=== PATIENT | female | born 1950 | race Caucasian/White ===

== ENCOUNTER 2024-03-07 09:56 | Outpatient (AMB) | payer MEDICARE, SELFPAY ==
--- NOTE | 2024-03-07 10:02 | A.OFFPC_ITS ---
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 // Est Care Intake Note: Establish care Is last menstrual period known: No Post menopausal: Yes Patient : No Allergies lisinopril Allergy (Intermediate, Verified 03/07/24 10:04) Facial Swelling Medication List - Last Reconciled 03/07/24 by Rustam Moore MD cholecalciferol (vitamin D3) 25 mcg PO DAILY epinephrine 0.3 mg (0.3 mL) IM Q10M PRN 30 days fluorouracil 5% 1 appl topical BID hydrochlorothiazide 25 mg PO DAILY levothyroxine 75 mcg PO DAILY loratadine (Claritin) 10 mg PO DAILY metoprolol succinate ER 50 mg PO DAILY pravastatin 40 mg PO DAILY Tobacco use date assessed: 03/07/24 Fall risk assessment: No Falls in past year Last assessed Fall Risk: 03/07/24 Dental Screening Dental Screen Date: 03/07/24 Did you have a dental visit in the last 12 months?: Yes Did you have a dental problem in the last 6 months where you did not have access to dental care?: No Was dental information given to patient?: Patient has dentist 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 ?? Prior PCP:? Vonda Valadez from [facility] Last office visit/CPE:? August 2023, CPE 1 yr ago Acute issue(s):? Broken Teeth. Oral surgeon Dr De Leon in [place]. Basal Cell Skin CA - Dr Meraz, Dermatology BP 130/80 Last Colonoscopy last year and f/u 2029. ?? PMHx:? HTN, HLD, Hypothyroid, Allergy, Low Vit D, Basal Cell CA, Recurrent Back strain SurgHx:?L knee/patella. FHx:?Brother: Heart disease. Mother: Colon CA. Father: DM. Daughter: DM SocHx:?Quit cigs 1979, EtOH: Beer & Wine 1-2 glasses. MJ edibles for sleep. No other drugs PFSH Medical History (Updated 03/07/24 @ 10:52 by Rustam Moore MD) Skin cancer Hypothyroid High blood pressure High cholesterol Surgical History (Updated 03/07/24 @ 10:10 by Lelo Thompson CMA) H/O knee surgery Family History (Updated 03/07/24 @ 10:11 by Lelo Thompson CMA) Father Diabetes Mother Colon cancer Social History (Updated 03/07/24 @ 10:11 by Lelo Thompson CMA) Housing: Condominium Patient Tobacco Use Status: Never used Tobacco e-Cigarette/Vaping Use: Never Used Second Hand Smoke Exposure: No Use of substances other than those prescribed or required for medical reasons: No Patient : No service: No Current occupational status: retired Current occupational exposures/hazards: No Cognitive needs: No Hearing needs: No Vision needs: Yes Questionnaire PHQ-9 Over the last 2 weeks, how often have you been bothered by any of the following problems? 1. Little interest or pleasure in doing things: not at all 2. Feeling down, depressed, or hopeless: not at all 3. Trouble falling or staying asleep, or sleeping too much: not at all 4. Feeling tired or having little energy: not at all 5. Poor appetite or overeating: not at all 6. Feeling bad about yourself - or that you are a failure or have let yourself or your family down: not at all 7. Trouble concentrating on things, such as reading the newspaper or watching television: not at all 8. Moving or speaking so slowly that other people could have noticed. Or the opposite - being so fidgety or restless that you have been moving around a lot more than usual: not at all 9. Thoughts that you would be better off or of hurting yourself in some way: not at all Total score: 0 Depression Screening Interpretation: Negative Depression Screening Done: Yes 73397 - PHQ-9 Billing: Yes Source: Developed by Drs. Gael Jay, Tonya Maciel, Hakeem Santillan and colleagues, with an educational zachariah from [employer]. Thrive Questionnaire Date Thrive assessed: 03/07/24 I am a: Patient What is your living situation today?: I have a steady place to live Within the past 12 months, did the food you bought not last and you didn't have the money to get more?: Never true Within the past 12 months, did you worry whether your food would run out before you got money to buy more?: Never true Do you have trouble paying for medicines?: No Do you have trouble getting transportation to medical appointments?: No Do you have trouble paying your heating and electricity bill?: No Do you have trouble taking care of your child, family member or friend?: No Do you have trouble with day-to-day activities such as bathing, preparing meals, shopping, managing finances, etc.?: No Are you currently unemployed and looking for a job?: No Are you interested in more education?: No Please select the resources that you would like help with: None Currently or been in a relationship where the following occur: No concerns reported THRIVE Score: 0 AUDIT C Alcohol Use Questionnaire (AUDIT-C) 1. How often do you have a drink containing alcohol?: 4 or more times a week 2. How many drinks containing alcohol do you have on a typical day when you are drinking?: 1 or 2 3. How often do you have six or more drinks on one occasion?: Never Total Score: 4 KP-7 AMB Questionnaire KP-7 Date KP - 7 assessed: 03/07/24 Feeling nervous, anxious, or on edge: 0 = Not at all Not being able to stop or control worryin = Not at all Worrying too much about different things: 0 = Not at all Trouble relaxin = Not at all Being so restless that it is hard to sit still: 0 = Not at all Becoming easily annoyed or irritable: 0 = Not at all Feeling afraid as if something awful might happen: 0 = Not at all Total KP-7 score (0-4 normal; 5-9 mild; 10-14 moderate; 15-21 severe): 0 Source: Developed by Drs. Gael Jay, Tonya Maciel, Hakeem Santillan and colleagues, with an educational zachariah from [employer]. Review of Systems Const Denies chills, Denies fatigue, Denies fever(s), Denies headache(s) and Denies weakness ENT Denies dizziness and Denies headache(s) Card Denies chest pain, Denies lightheadedness, Denies dyspnea and Denies other (Palpitations) Resp Denies cough, Denies dyspnea, Denies wheezing and Denies other ( shortness of breath) Musc Denies numbness and Denies tingling Neuro Denies dizziness, Denies headache(s), Denies numbness, Denies tingling, Denies paresthesias and Denies weakness Psych Denies anxiety and Denies depression Endo Denies fatigue Aller/Immun Denies wheezing Physical exam (Primary Care) Vital Signs: Last Vital Signs Temp 98.3 F 03/07/24 10:14 Pulse 66 03/07/24 10:14 Resp 16 03/07/24 10:14 BP 130/78 03/07/24 10:14 Pulse Ox 96 03/07/24 10:14 Oxygen Delivery Method Room Air 03/07/24 10:14 BMI result Body Mass Index 25.9 Tobacco/Smoking Status: Tobacco use Status Tobacco use date assessed 03/07/24 03/07/24 10:06 Patient Tobacco Use Status Never used Tobacco 03/07/24 10:11 e-Cigarette/Vaping Use Never Used 03/07/24 10:11 PHQ-9: PHQ-9 Score PHQ-9: Total score 0 03/07/24 10:20 Depression Screening Interpretation: Negative Thrive Assessment: Date of Thrive Assessment Date Thrive assessed 03/07/24 03/07/24 10:19 Currently or been in a relationship where the following occur: No concerns reported Const General: no acute distress and well developed Nutritional Appearance: well nourished Orientation/consciousness: patient oriented x3 [facility] Head: Yes normocephalic and Yes atraumatic Eyes General: appearance normal, both eyes and all related structures Pupils: Equal, round and reactive pupils present EOM: EOMs intact bilaterally Resp Effort & Inspection: normal respiratory effort Auscultation: clear to auscultation bilaterally Cardio Rate: regular rate Rhythm: regular rhythm Heart sounds: S1 normal heart sound present, S2 normal heart sound present, no gallops, no murmurs and no rubs Neuro General: patient oriented x3 and gait normal Cranial nerves: Yes Equal, round and reactive pupils present Psych Affect: normal affect Coding Level of Care Code New Pt Level 3 (30716) Diagnoses Back pain M54.9 High blood pressure I10 Hypothyroid E03.9 High cholesterol E78.00 Low vitamin D level R79.89 Basal cell carcinoma C44.91 History of colon polyps Z86.0100 Family history of colon cancer Z80.0 Laboratory exam ordered as part of routine general medical examination Z00.00 Additional Codes PHQ-9 - 05689 - PHQ-9 Billing: Yes ([id number]) Assessment & Plan Assessment & Plan (1) Back pain: Code(s): M54.9 - Dorsalgia, unspecified Category: Medical Plan: Patient?gets?recurrent?back?pain?though?currently?this?is?stable She?will?let?me?know?if?this?flares?up?and?we?discussed?using?physical?therapy?f or?this (2) High blood pressure: Code(s): I10 - Essential (primary) hypertension Category: Medical Plan: Blood?pressure?is?controlled.??Goal?is?less?than?140/90 Continue?current?medication?regimen (3) Hypothyroid: Code(s): E03.9 - Hypothyroidism, unspecified Category: Medical Plan: Taking?levothyroxine?75?mcg?daily. Check?labs (4) High cholesterol: Code(s): E78.00 - Pure hypercholesterolemia, unspecified Category: Medical Plan: Patient?is?on?pravastatin Check?labs (5) Low vitamin D level: Code(s): R79.89 - Other specified abnormal findings of blood chemistry Category: Medical Plan: Patient?is?on?vitamin-D?supplementation Check?vitamin-D?level (6) Basal cell carcinoma: Code(s): C44.91 - Basal cell carcinoma of skin, unspecified Category: Medical Plan: Followed?by??Mariya,?Dermatology?in?no?[place]?for?basal?cell?carcinoma.??She? is?taking?fluorouracil. 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 (8) Family history of colon cancer: Code(s): Z80.0 - Family history of malignant neoplasm of digestive organs Category: Medical Plan: As?above (9) Laboratory exam ordered as part of routine general medical examination: Code(s): Z00.00 - Encounter for general adult medical examination without abnormal findings Category: Medical Plan: Check?labs Orders: Orders Complete Blood Count Auto Diff Today Z00.00 - Encounter for general adult medical examination without abnormal findings Comprehensive [place]. Panel Fast Today Z00.00 - Encounter for general adult medical examination without abnormal findings Microalbumin, Random (w Creat) Today I10 - Essential (primary) hypertension Free T4 (Free Thyroxine) Today E03.9 - Hypothyroidism, unspecified Vitamin D 25-OH Total Today E55.9 - Vitamin D deficiency, unspecified Lipid Panel Today Z00.00 - Encounter for general adult medical examination without abnormal findings UA and rflx microscopic Today Z00.00 - Encounter for general adult medical examination without abnormal findings Thyroid Stimulating Hormone Today E03.9 - Hypothyroidism, unspecified Triiodothyronine T3 Total Today E03.9 - Hypothyroidism, unspecified Medications: New epinephrine for 2 doses 0.3 mg (0.3 mL) IM Q10M 30 days PRN 2 ea 3RF anaphylaxis
[2024-03-07 10:14] VITALS: BP 130/78; PULSE 66; RESP 16; TEMP 36.8; O2SAT 96; BMI 25.9
== END 2024-03-07 10:50 | disposition home or self-care (01) ==
PROVIDERS: Visit Provider Family Medicine
DX: M54.9 Dorsalgia, unspecified (principal); I10 Essential (primary) hypertension; E03.9 Hypothyroidism, unspecified; E78.00 Pure hypercholesterolemia, unspecified; R79.89 Other specified abnormal findings of blood chemistry; C44.91 Basal cell carcinoma of skin, unspecified; Z86.0100 Personal history of colon polyps, unspecified; Z80.0 Family history of malignant neoplasm of digestive organs; Z00.00 Encounter for general adult medical examination without abnormal findings

== ENCOUNTER → 2024-03-07 09:56 | Outpatient (BNVA) | payer MEDICARE, SELFPAY | PROVIDERS: Visit Provider Family Medicine | DX: Z00.00 Encounter for general adult medical examination without abnormal findings (principal); I10 Essential (primary) hypertension; M54.9 Dorsalgia, unspecified; E03.9 Hypothyroidism, unspecified; E78.00 Pure hypercholesterolemia, unspecified; R79.89 Other specified abnormal findings of blood chemistry; C44.91 Basal cell carcinoma of skin, unspecified; Z80.0 Family history of malignant neoplasm of digestive organs; Z86.0100 Personal history of colon polyps, unspecified | CPT/HCPCS: 96127; 99202 ==

== ENCOUNTER 2024-03-15 08:51 | Outpatient (REF) | payer MEDICARE, SELFPAY ==
[2024-03-15 11:20] LABS: MANUAL DIFF FLAG NO
[2024-03-15 11:29] LABS: Basophils Absolute Auto 0.1 X10*3/uL (0.0-0.2); Basophils Percent Auto 1.2 % (0-2); Eosinophils Absolute Auto 0.4 X10*3/uL (0.0-0.4); Eosinophils Percent Auto 6.4 % (0-4); Hematocrit 38.6 % (37.0-47.0); Hemoglobin 13.3 g/dl (12.0-16.0); Imm Gran Abs Auto 0.03 X10*3/uL (0.00-0.03); Imm Gran Pct Auto 0.5 % (0.0-0.4); Lymphocytes Absolute Auto 1.6 X10*3/uL (1.2-4.9); Lymphocytes Percent Auto 24.8 % (20-40); Mean Corpuscular HGB Conc 34.5 g/dl (31.0-35.0); Mean Corpuscular Hemoglobin 31.7 pg (27.0-33.0); Mean Corpuscular Volume 91.9 fL (80.0-98.0); Mean Platelet Volume 11.1 fL (9.4-12.3); Monocytes Absolute Auto 0.5 X10*3/uL (0.1-1.2); Monocytes Percent Auto 7.6 % (2-11); Neutrophils Absolute Auto 3.8 x10*3/uL (2.0-8.3); Neutrophils Percent Auto 59.5 % (45-73); Platelet Count 183 X10*3/uL (160-400); Red Cell Distribution Width 12.1 % (11.0-16.0); White Blood Count 6.4 X10*3/uL (4.8-10.8)
[2024-03-15 11:41] LABS: Appearance Urine Clear; Color Urine Yellow; Glucose Urine UA Negative (Negative); Leukocyte Esterase Urine Trace (Negative); Nitrite Urine Negative (Negative); PH 8.5 (5.0-9.0); Specific Gravity - Urine 1.015 (1.005-1.025); UMIC TRIGGER UA YES; Urine Blood Negative (Negative); Urine Ketones Negative (Negative); Urine Protein Negative (Neg-Trace)
[2024-03-15 11:52] LABS: Alanine Aminotransferase 22 U/L (0-31); Albumin Level 3.9 g/dL (3.5-5.0); Alkaline Phosphatase 62 U/L (39-117); Anion Gap 9 (12-20); Aspartate Amino Transferase 27 U/L (5-31); Bilirubin Total 0.8 mg/dL (0.0-1.0); Blood Urea Nitrogen 14 mg/dL (9-16); Calcium 8.8 mg/dL (8.4-10.2); Carbon Dioxide 29 mmol/L (22-29); Chloride 105 mmol/L (96-108); Cholesterol 208 mg/dL (<200); Estimated Glomerular Filt Rate > 60; Glucose Fasting 111 mg/dL (60-99); HDL Cholesterol 83 mg/dL (>40); LDL Cholesterol Calculated 104 mg/dL (<100); Potassium 3.1 mmol/L (3.3-5.1); Sodium 140 mmol/L (135-145); Total Protein 6.7 g/dL (6.5-8.0); Triglycerides 109 mg/dL (<150)
[2024-03-15 11:53] LABS: Bacteria Urine None Seen (None Seen); Hyaline Casts Urine 0-2 /LPF (0-2); Other Crystals Urine Present; RBC Urine 0-2 /HPF (0-2); Squamous Epithelial Cell Urine 0-2 /HPF (0-2); WBC Urine 0-5 /HPF (0-5)
[2024-03-15 12:01] LABS: Creatinine Urine 80.62 mg/dL; Microalbum/Creatinine Ratio Ur 8.6 ug/mg cr (<30)
[2024-03-15 12:10] LABS: Free T4 (Free Thyroxine) 1.18 ng/dL (0.71-1.85); Thyroid Stimulating Hormone 2.58 uIU/mL (0.32-4.0); Vitamin D 25-OH Total 68.8 ng/mL (>30)
[2024-03-16 10:18] LABS: Triiodothyronine T3 Total 98 ng/dL (76-181)
== END 2024-03-15 08:52 | disposition home or self-care (01) ==
LOC: HO.WFDLDS 08:51
PROVIDERS: Visit Provider Family Medicine
DX: Z00.00 Encounter for general adult medical examination without abnormal findings (principal); E03.9 Hypothyroidism, unspecified; E55.9 Vitamin D deficiency, unspecified; I10 Essential (primary) hypertension
CPT/HCPCS: 36415; 80053; 80061; 81001; 82043; 82306; 82570; 84439; 84443; 84480; 85025

== ENCOUNTER 2025-01-31 08:51 | Outpatient (AMB) | payer MEDICARE, SELFPAY ==
--- NOTE | 2025-01-31 09:02 | MHC.PC.OV ---
Vital Signs 01/31/25 09:17 Height 5 ft 3 in Weight 181 lb 4 oz BMI 32.1 BP 128/82 Blood Pressure Location Lt brachial Position Sitting Respiration 16 Pulse 94 Pulse Source Pulse Oximeter Temp 97.6 F Temp Source Temporal Artery Scan Pulse Oximetry (%) 99 Oxygen Delivery Method Room Air Intake Visit Reasons: Annual PE - see comments Intake Note: Jose Miguel presents in the office today for her annual physical. 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 Post menopausal: Yes Patient : No Allergies lisinopril Allergy (Intermediate, Verified 01/31/25 09:15) Facial Swelling Medication List - Last Reconciled 01/31/25 by Rustam Moore MD cholecalciferol (vitamin D3) 25 mcg PO DAILY epinephrine 0.3 mg (0.3 mL) IM Q10M PRN 30 days fluorouracil 5% 1 appl topical BID hydrochlorothiazide 25 mg PO DAILY 90 days levothyroxine 75 mcg PO DAILY 90 days loratadine (Claritin) 10 mg PO DAILY metoprolol succinate ER 50 mg PO DAILY 90 days pravastatin 40 mg PO DAILY 90 days Tobacco use date assessed: 01/31/25 Fall risk assessment: No Falls in past year Last assessed Fall Risk: 01/31/25 Dental Screening Dental Screen Date: 01/31/25 Did you have a dental visit in the last 12 months?: Yes Did you have a dental problem in the last 6 months where you did not have access to dental care?: No Was dental information given to patient?: Patient has dentist HPI Annual PE - see comments HPI Details 74 y/o female presents for a CPE with f/u labs and health maint. Labs drawn 03/15/24. Reviewed labs with pt. Fasting glucose 111. Triglycerides 109. TC 208. LDL 104. HDL 83. Vitamin D 68/8 ng/mL. TSH 2.58. Free T4 1.18. Total T3 98. She is on levothyroxine 75 mcg daily. HPI Comments History of Present Illness Details Documentation assistance for Rustam Moore MD, was provided by Tristan Patel,? Engineering And Scientific Programmer on 01/31/2025 at 9:40 AM EST. Lomas, Dr. Moore, have read, observed, and verified documentation. ? [facility] Medical History (Updated 01/31/25 @ 09:56 by Tristan Patel) Skin cancer Hypothyroid High blood pressure High cholesterol Surgical History (Updated 03/07/24 @ 10:10 by INESSA Martines) H/O knee surgery Family History Father Diabetes Mother Colon cancer Social History (Updated 01/31/25 @ 09:17 by Brenna Wilkinson CMA) [facility] Alcohol intake: current Patient Tobacco Use Status: Never used Tobacco e-Cigarette/Vaping Use: Never Used Second Hand Smoke Exposure: No service: No Current occupational status: retired Current occupational exposures/hazards: No Cognitive needs: No Hearing needs: No Vision needs: Yes Questionnaire PHQ-9 Over the last 2 weeks, how often have you been bothered by any of the following problems? 1. Little interest or pleasure in doing things: not at all 2. Feeling down, depressed, or hopeless: not at all 3. Trouble falling or staying asleep, or sleeping too much: not at all 4. Feeling tired or having little energy: not at all 5. Poor appetite or overeating: not at all 6. Feeling bad about yourself - or that you are a failure or have let yourself or your family down: not at all 7. Trouble concentrating on things, such as reading the newspaper or watching television: not at all 8. Moving or speaking so slowly that other people could have noticed. Or the opposite - being so fidgety or restless that you have been moving around a lot more than usual: not at all 9. Thoughts that you would be better off or of hurting yourself in some way: not at all Total score: 0 Depression Screening Interpretation: Negative Depression Screening Done: Yes 76255 - PHQ-9 Billing: Yes Source: Developed by Drs. Gael Jay, Tonya Maciel, Hakeem Santillan and colleagues, with an educational zachariah from [employer]. Thrive Questionnaire Date Thrive assessed: 01/31/25 I am a: Patient What is your living situation today?: I have a steady place to live Within the past 12 months, did the food you bought not last and you didn't have the money to get more?: Never true Within the past 12 months, did you worry whether your food would run out before you got money to buy more?: Never true Do you have trouble paying for medicines?: No Do you have trouble getting transportation to medical appointments?: No Do you have trouble paying your heating and electricity bill?: No Do you have trouble taking care of your child, family member or friend?: No Do you have trouble with day-to-day activities such as bathing, preparing meals, shopping, managing finances, etc.?: No Are you currently unemployed and looking for a job?: No Are you interested in more education?: No Please select the resources that you would like help with: None Currently or been in a relationship where the following occur: No concerns reported THRIVE Score: 0 AUDIT C Alcohol Use Questionnaire (AUDIT-C) 1. How often do you have a drink containing alcohol?: Monthly or less 2. How many drinks containing alcohol do you have on a typical day when you are drinking?: 1 or 2 Total Score: 1 KP-7 AMB Questionnaire KP-7 Date KP - 7 assessed: 01/31/25 Feeling nervous, anxious, or on edge: 0 = Not at all Not being able to stop or control worryin = Not at all Worrying too much about different things: 0 = Not at all Trouble relaxin = Not at all Being so restless that it is hard to sit still: 0 = Not at all Becoming easily annoyed or irritable: 0 = Not at all Feeling afraid as if something awful might happen: 0 = Not at all Total KP-7 score (0-4 normal; 5-9 mild; 10-14 moderate; 15-21 severe): 0 Source: Developed by Drs. Gael Jay, Tonya Maciel, Hakeem Santillan and colleagues, with an educational zachariah from [employer]. KP-7 Assessment Billing KP-7 Assessment Tool: KP-7 Assessment 98758 Review of Systems Const Denies chills, Denies fatigue, Denies fever(s), Denies headache(s) and Denies weakness Eyes Denies change in vision ENT Denies dizziness, Denies headache(s), Denies hearing loss, Denies nasal congestion, Denies sinus pain, Denies sinus pressure and Denies sore throat Card Denies chest pain, Denies lightheadedness, Denies dyspnea and Denies other (palpitations) Resp Denies cough, Denies dyspnea and Denies wheezing GI Denies abdominal pain, Denies melena, Denies hematochezia, Denies change in bowel habits, Denies dyspepsia and Denies nausea Denies hematuria and Denies dysuria Musc Denies abnormal gait, Denies myalgias, Denies arthralgias, Denies numbness and Denies tingling Skin/Breast Denies rash, Denies unusual bruising and Denies wounds Neuro Denies abnormal gait, Denies dizziness, Denies headache(s), Denies memory loss, Denies numbness, Denies Sensory deficit (Neuro), Denies tingling and Denies weakness Psych Denies anxiety, Denies depression and Denies memory loss Endo Denies cold intolerance, Denies fatigue, Denies heat intolerance, Denies polydipsia and Denies polyuria Agustín/Lymph Denies easy bleeding and Denies easy bruising Aller/Immun Denies wheezing Physical exam (Primary Care) Vital Signs: Last Vital Signs Temp 97.6 F 01/31/25 09:17 Pulse 94 01/31/25 09:17 Resp 16 01/31/25 09:17 BP 128/82 01/31/25 09:17 Pulse Ox 99 01/31/25 09:17 Oxygen Delivery Method Room Air 01/31/25 09:17 BMI result Body Mass Index 32.1 Tobacco/Smoking Status: Tobacco use Status Tobacco use date assessed 01/31/25 01/31/25 09:20 Patient Tobacco Use Status Never used Tobacco 01/31/25 09:17 e-Cigarette/Vaping Use Never Used 01/31/25 09:17 PHQ-9: PHQ-9 Score PHQ-9: Total score 0 01/31/25 09:35 Depression Screening Interpretation: Negative Thrive Assessment: Date of Thrive Assessment Date Thrive assessed 01/31/25 01/31/25 09:35 Currently or been in a relationship where the following occur: No concerns reported Const General: no acute distress, well developed, alert and awake Nutritional Appearance: well nourished Orientation/consciousness: patient oriented x3 HENMT Head: Yes normocephalic and Yes atraumatic Ears: hearing grossly normal bilaterally and TM's normal bilaterally General nose exam: Normal external nose present and Normal nares present Mouth: Normal oral and palatal mucosa present and moist mucous membranes Teeth and gingiva: dentition normal Throat: Yes posterior oropharynx normal Eyes General: appearance normal, both eyes and all related structures Pupils: Equal, round and reactive pupils present and Pupil accommodation reflex normal EOM: EOMs intact bilaterally Neck Neck: Yes normal visual inspection, Yes no lymphadenopathy and Yes trachea midline Thyroid: Thyroid normal Carotids: no bruits Lymphatic: no lymphadenopathy noted Chest Chest palpation & inspection: normal inspection of the chest Resp Effort & Inspection: normal respiratory effort Auscultation: clear to auscultation bilaterally Cardio Rate: regular rate Rhythm: regular rhythm Heart sounds: S1 normal heart sound present, S2 normal heart sound present, no gallops, no murmurs and no rubs Bruits: no abdominal aortic bruits and no carotid bruits GI Palpation (GI): No Abdominal aortic bruit present, Soft to palpation, nontender, No hepatosplenomegaly present and No Rebound tenderness present Auscultation: normal bowel sounds General: Yes no CVA tenderness Back/Spine/Pelvis Back: no CVA tenderness Cervical Spine: cervical ROM normal and No Cervical spine tenderness Thoracic/Lumbar Spine: thoraco-lumbar ROM normal, No pain with thoraco-lumbar ROM, No thoracic spinal tenderness and No lumbar spinal tenderness Skin Lesions: no lesions Rashes: no rashes Trauma: no lacerations or abrasions Wounds: no wounds Nails: normal Neuro General: patient oriented x3 Cranial nerves: Yes Equal, round and reactive pupils present Cognition (Neuro): normal cognition Gait exam (Neuro): Normal gait present Motor exam (neuro): 5/5 motor strength present throughout Sensory Exam: No Sensory deficit (Neuro) Deep tendon reflexes (DTR's): Right patellar reflex intensity grade: 2+ and Left patellar reflex intensity grade: 2+ Extrem General: Yes normal to inspection and No edema Psych Appearance: grossly normal Affect: normal affect Attitude: cooperative Thought process: Normal thought process present Coding Level of Care Code Est Pt Level 3 (15324) Est Pt Prev Care >65y(01310) Diagnoses Adult general medical exam Z00.00 High blood pressure I10 High cholesterol E78.00 Hypothyroid E03.9 Elevated fasting glucose R73.01 Screening for colon cancer Z12.11 History of colon polyps Z86.0100 Breast cancer screening by mammogram Z12.31 Immunization counseling Z71.85 Screening for osteoporosis Z13.820 Additional Codes KP-7 Assessment Billing - KP-7 Assessment Tool: KP-7 Assessment 26113 ([id number]) PHQ-9 - 12487 - PHQ-9 Billing: Yes ([id number]) Assessment & Plan Assessment & Plan (1) Adult general medical exam: Code(s): Z00.00 - Encounter for general adult medical examination without abnormal findings Category: Medical Plan: 74 y/o female presents for complete physical exam Exam within limits Encouraged healthy diet with active lifestyle and plenty of exercise (2) High blood pressure: Code(s): I10 - Essential (primary) hypertension Category: Medical Plan: Blood pressure is controlled. Goal is less than 140/90 Continue current medication (3) High cholesterol: Code(s): E78.00 - Pure hypercholesterolemia, unspecified Category: Medical Plan: Cholesterol is mildly elevated at prior checking March Will recheck this Encouraged diet low in saturated fats and cholesterol (4) Hypothyroid: Code(s): E03.9 - Hypothyroidism, unspecified Category: Medical Plan: Thyroid hormone levels were all within normal range in March She is due to repeat this Ordered (5) Elevated fasting glucose: Code(s): R73.01 - Impaired fasting glucose Category: Medical Plan: Patient had elevated fasting blood sugar Will recheck this along with an A1c (6) Screening for colon cancer: Code(s): Z12.11 - Encounter for screening for malignant neoplasm of colon Category: Medical Plan: Up-to-date and recommended follow-up is 2029 (7) History of colon polyps: Code(s): Z86.0100 - Personal history of colon polyps, unspecified Category: Medical Plan: As above, 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 Also had pneumonia shot She is up-to-date (10) Screening for osteoporosis: Code(s): Z13.820 - Encounter for screening for osteoporosis Category: Medical Plan: Patient says her last bone density test was greater than 2 years ago Denies history of osteoporosis She is taking vitamin-D She will also look for good sources of calcium Encouraged some weight-bearing exercise as tolerated Orders: Orders Comprehensive [place]. Panel Fast Today Z00.00 - Encounter for general adult medical examination without abnormal findings Lipid Panel Today Z00.00 - Encounter for general adult medical examination without abnormal findings UA CC w/rflx Micro + Cult Today Z00.00 - Encounter for general adult medical examination without abnormal findings TSH reflex Free T4 Today Z00.00 - Encounter for general adult medical examination without abnormal findings Complete Blood Count Auto Diff Today Z00.00 - Encounter for general adult medical examination without abnormal findings Microalbumin, Random (w Creat) Today I10 - Essential (primary) hypertension
--- OUTSIDE RECORDS SUMMARY | 2025-01-31 09:07 | XMS_ITS | Clinical Summary ---
Author Organization [facility] Address [address] [place] [address] Phone Care Team Providers Care Software Applications Specialist Name Role Phone Alyx Jackson Primary Care Provider [phone] Allergies Active Allergy Reactions Criticality Noted Date Comments Lisinopril Angioedema High 03/25/2017 Scallops Unknown,Nausea and/o r Vomiting Medium 03/20/2011 [place] Medications metoprolol succinate (TOPROL-XL) 100 MG 24 hr tablet Take 50 mg by mouth daily. Active loratadine (CLARITIN) 10 mg tablet Take 10 mg by mouth daily. Active EPINEPHrine (EPIPEN, ADRENACLICK) 0.3 mg/0.3 mL auto-injector Inject 0.3 mg into the muscle as needed for anaphylaxis . Active hydroCHLOROthiaz sung (HYDRODIURIL) 25 MG tablet Take 25 mg by mouth daily. Active levothyroxine (SYNTHROID, LEVOTHROID) 50 MCG tablet Take 75 mcg by mouth every morning. Active cholecalciferol (VITAMIN D3) 1,000 unit tablet Take 1,000 Units by mouth daily. Active pravastatin (PRAVACHOL) 40 MG tablet 01/15/2021 Active Active Problems Problem Noted Date Diagnosed Date Basal cell carcinoma (BCC) of forehead 3 Immunizations Immunization Administration Dates Next Due INFLUENZA, SPLIT VIRUS, TRIVALENT PF 12/05/2016, 11/22/2015,12/05/2014 Influenza High-Dose Quadriva lent Preservative Free IM 11/23/2021 Influenza High-Dose Trivalen t Preservative Free IM 11/11/2018,11/13/2017 Influenza Quadrivalent Adjuv anted Preservative Free IM 10/24/2020 Pneumococcal conjugate PCV13 12/29/2014 Pneumococcal polysaccharide PPSV23 01/04/2016 Zoster recombinant 02/08/2018 Family History Medical History Relation Comments Cancer Father Diabetes Father Stroke Father Cancer Mother Breast cancer Neg Hx Relation Status Comments Father Mother Social History Tobacco Use Types Packs/Day Years Used Date Smoking Tobacco: Never Smokeless Tobacco: Never Tobacco Cessation:Counseling Given: Not Answered Alcohol Use Standard Drinks/Week Comments Yes 1 (1 standard drink = 0.6 oz pur e alcohol) Education Answer Date Recorded Are you interested in more education? Not on angela e 06/27/2022 Are you concerned about learning? Not on file 06/27/2022 No 06/27/2022 No 06/27/2022 Digital Access Answer Date Recorded No 07/28/2022 No 07/28/2022 Reliable internet access at home? Not on file 07/28/2022 Device with a working camera? Not on file Intimate Partner Violence Answer Date R ecorded Are you denied basic needs s uch as food, clothing, or medical care? No 06/25/2022 In the past 12 months have y ou been in a relationship with a person who hurts, threatens, or tries to control you? No 06/25/2022 Are you denied basic needs s uch as food, clothing, or medical care? No 06/25/2022 In the past 12 months have y ou been in a relationship with a person who hurts, threatens, or tries to control you? No 06/25/2022 Comments No Sex and Gender Information Value Date Recorded Sex Assigned at Not on file Legal Sex Female 10:02 PM EDT Gender Identity Not on file Sexual Orientation Not on file Last Filed Vital Signs Vital Sign Reading Time Taken Comments Blood Pressure 154/82 09/28/2023 10:20 AM EDT Pulse 79 09/28/2023 10:20 AM EDT Temperature 36.7 C (98.1 F) 09/28/2023 10:20 AM EDT Respiratory Rate 18 09/28/2023 10:20 AM EDT Oxygen Saturation 100% 09/28/2023 10:20 AM EDT Inhaled Oxygen Concentration 20.5% 06/25/2022 8 :59 AM EDT Weight 64.4 kg (142 lb) 09/28/2023 10:20 AM EDT Height 160 cm (5' 3 ) 08/04/2022 9:24 AM EDT Body Mass Index 25.15 08/04/2022 9:24 AM EDT Plan of Treatment Health Maintenance Due Date Last Done Comments Adult Td,Tdap Booster 1950 DEPRESSION SCREENING 1961 HEPATITIS C SCREENING 11/11/1967 COLOGUARD 1994 FIT TEST 1994 FOBT 1994 SIGMOIDOSCOPY 1994 VIRTUAL COLONOSCOPY 1994 OSTEOPOROSIS SCREENING INITIAL (ONE-TIME) 2014 ZOSTER VACCINES (2 of 2) 04/05/2018 02/08/2018 POTASSIUM LEVEL 09/27/2024 09/28/2023, 03/02, 10/17/2022, Additional history exists INFLUENZA VACCINE (#1) 2024 , 10/24/2020, 11/11/2018, Additional history exists COVID-19 VACCINE ( season) 2024 11/23/2021, 06/11/2021, 12/25/2020, Additional history exists RSV VACCINE (1 - 1-dose 75+ series) 2024 TSH LEVEL 12/16/2024 12/17/2023, 03/02, 10/17/2022, Additional history exists LIPID PANEL 03/20/2028 03/20/2023, 04/03, 04/17/2020, Additional history exists COLONOSCOPY 06/25/2032 06/25/2022, 04/01/2017 COLORECTAL CANCER SCREENING 06/25/2032 PNEUMOCOCCAL VACCINES (50+ years) Completed 01/04/2016, 12/29/2014 SMOKING STATUS SCREENING (Once After 26 Yrs) Completed 09/28/2023 HEPATITIS A VACCINES Aged Out No long er eligible based on patient's age to complete this topic HIB VACCINES Aged Out No longer eligi ble based on patient's age to complete this topic MENINGOCOCCAL VACCINES (ACWY) Aged Out No longer eligible based on patient's age to complete this topic MENINGOCOCCAL VACCINES (B) Aged Out N o longer eligible based on patient's age to complete this topic Medical Devices Implanted Type 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 Device Identifier Shelf Expiration Date Model / Serial / Lot Metal Left: Knee Description:left knee cap Procedures Procedure Name Priority Date/Time Associated Diagnosis Comments TSH WITH REFLEX Routine 12/17/2023 11:14 AM EDT Hypothyroidism, unspecified type BASIC METABOLIC PANEL (BMP) Routine 09/28/2023 9:59 AM EDT Hypertension, unspecified type Elevated glucose LIPID PANEL Routine 03/20/2023 8:13 AM EST Hypertension, unspecified type Hypothyroidism, unspecified type Routine general medical examination at a health care facility ENDOSCOPY, COLON 06/25/2022 8:10 AM EDT from Last 3 Months or Most Recently Relevant to Health Maintenance Results * TSH with reflex (12/17/2023 11:14 AM EDT) TSH 2.52 0.27 - 4.20 uIU/mL [facility] Blood 12/17/2023 11:1 4 AM EDT 12/17/2023 11:16 AM EDT us Alyx RIVERA LAB BLOOD BKR ORDERABLES Final Result [address] [address] * (ABNORMAL) Basic metabolic panel (09/28/2023 9:59 AM EDT) SODIUM 139 133 - 146 mmol/L [facility] CHLORIDE 99 96 - 108 mmol/L [facility] POTASSIUM 3.6 3.3 - 5.1 mmol/L [facility] CO2 31 21 - 35 mmol/L [facility] BUN 11 6 - 19 mg/dL [facility] CREATININE 0.50 0.5 - 1.5 mg/dL [facility] GLUCOSE 111(H) 70 - 99 mg/dL [facility] CALCIUM 9.6 8.4 - 10.3 mg/dL [facility] EGFR 99 >59 mL/min/1.7 3m2 [facility] Comment:Estimated glomerular filtration rate calculated using the CKD-EPI refit equation. ANION GAP 13 10 - 20 mmol/L [facility] Blood 09/28/2023 9:59 AM EDT 09/28/2023 10:02 AM EDT Alyx RIVERA LAB BLOOD BKR ORDERABLES Final Result Performing Organization Address City/[facility]/ZIP Co de Phone Number [address] [address] * (ABNORMAL) Lipid panel (03/20/2023 8:13 AM EST) HDL 80 mg/dL [facility] Comment: Interpretation <40 mg/dL: Low HDL cholesterol (major risk factor for CHD) Greater than or equal to 60 mg/dL: High HDL cholesterol ( negative risk factor for CHD) HDL - cholesterol is affected by a number of factors, e.g. smoking, excerise, hormones, sex and age. CHOLESTEROL 183 0 - 240 mg/dL [facility] TRIGLYCERIDES 75 30 - 160 mg/dL [facility] LDL 88 50 - 129 mg/dL [facility] Comment: LDL levels in terms of risk for coronary heart disease: <100 mg/dL: Optimal 100-129 mg/dL: Near or above optimal 130-159 mg/dL: Borderline high 160-189 mg/dL: High >190 mg/dL: Very High CARDIAC RISK RATIO 2.3(L) 3.3 - 4.4 [facility] Blood 03/20/2023 8:13 AM EST 03/20/2023 8:16 AM EST us Alyx RIVERA LAB BLOOD BKR ORDERABLES Final Result Performing Organization Address City/[facility]/ZIP Co de Phone Number [address] [address] * ENDOSCOPY, COLON (06/25/2022 8:10 AM EDT) Narrative Transcriptions Vitaliy Roy MD - 06/25/2022 8:10 AM EDT [facility] Patient Name: Jose Miguel Hoang Attending MD:: Vitaliy ROY MD, Procedure Date: 06/25/2022 8:10 AM Date of : 1950 Age: 71 Admit Type: Outpatient Gender: Female Room: [place] [address] Referring MD: Alyx Jackson MD Exam Type: Colonoscopy Indications: Bryant-rectal cancer screening, history of diverticulosis and colonic adenoma, lastcolonoscopy March 14, 2017 Medications: Midazolam 4 mg IV, Fentanyl 100 micrograms IV Procedure: Informed consent was obtained from the patientafter discussion of the indications, limitations, alternatives, benefits, and risks of the procedure. Risks specifically discussed include but are not limited to missed lesions, bleeding, perforation,or the need for emergent surgery. Throughout the procedure, the patient's blood pressure, pulse, end-tidal CO2, and oxygensaturations were monitored continuously. The Olympus pediatric variable [id number] #6 was introduced through the anus and advanced tothe cecum, identified by seeing the appendiceal orifice and ileocecal valve. The exam was performed without difficulty, was well tolerated by the patient, andthe quality of the bowel prep was good. Complications: There were no immediate complications. There wereno specimens. Blood loss - 0 Findings: Digital rectal exam was normal. There was moderate diverticulosis of the sigmoidcolon as had been seen in the past The remainder of the exam was otherwiseunremarkable, i.e., no polyps, tumors, vascular lesions, or areasof inflammation. Impression: - Sigmoid diverticulosis, no new polyps Recommendation: - The patient is advised to follow a high fiberdiet and/or use a fiber supplement for management of his diverticulosis - Repeat colonoscopy in 7 years. A SHAISTA ROY MD 06/25/2022 9:04:20 AM This report has been signed electronically. Number of Addenda: 0 Note Initiated On: 06/25/2022 8:10 AM Procedure Date: 06/25/2022 8:10:[address] [place] [address] Alyx RIVERA GI PROCEDURE ORDERABLES Final R esult from Last 3 Months or Most Recently Relevant to Health Maintenance Insurance MEDICARE [place] [address] [place] [address] MEDICARE REPLACEMENT MEDICARE REPLACEMENT MEDICARE REPLACEMENT [place] [id number] Care Teams Software Applications Specialist Relationship Specialty Start Date End Date Alyx Jackson PA [address] [place] [place] [address] [email or web address] PCP - General Unknown Provider Specialty 01/09/17 Additional Source Comments The information contained in this document represents components of the legal health record. It is not the complete legal health record.[facility]
--- OUTSIDE RECORDS SUMMARY | 2025-01-31 09:07 | XMS_ITS | Encounter Summary ---
Author Organization [facility] Address [address] [place] [address] Phone Care Team Providers Care Business Economist Name Role Phone Alyx Jackson Primary Care Provider [phone] Encounter Details Date Type Department Care Team (Late st Contact Info) Description 01/15/2017 Ancillary Orders Non-Invasive Cardiology [address] [place] [address] Alyx Jackson PA [address] [place] [address] [email or web address] Abnormal EKG; Abnormal exercise tolerance test Social History Tobacco Use Types Packs/Day Years Used Date Smoking Tobacco: Never Assessed Comments Unknown Sex and Gender Information Value Date Recorded Sex Assigned at Not on file Legal Sex Female 10:02 PM EDT Gender Identity Not on file Sexual Orientation Not on file documented as of this encounter Plan of Treatment Not on file documented as of this encounter Visit Diagnoses Diagnosis Abnormal EKG Nonspecific abnormal electrocardiogram (ECG) (EKG) Abnormal exercise tolerance test Nonspecific abnormal unspecified cardiovascular function study documented in this encounter Care Teams Business Economist Relationship Specialty Start Date End Date Alyx Jackson PA [address] [place] [address] [email or web address] PCP - General Unknown Provider Specialty 01/09/17 documented as of this encounter Additional Source Comments The information contained in this document represents components of the legal health record. It is not the complete legal health record.[facility]
--- OUTSIDE RECORDS SUMMARY | 2025-01-31 09:07 | XMS_ITS | Encounter Summary ---
Author Organization [facility] Address [address] [place] [address] [place] [address] Phone Care Team Providers Care Starch Mangle Tender Name Role Phone Alyx Jackson Primary Care Provider [phone] Encounter Details Date Type Department Care Team (Late st Contact Info) Description 01/01/2021 Procedure Pass [address] [address] Social History Tobacco Use Types Packs/Day Years Used Date Smoking Tobacco: Never Smokeless Tobacco: Never Alcohol Use Standard Drinks/Week Comments Yes 7 (1 standard drink = 0.6 oz pur e alcohol) Comments No Sex and Gender Information Value Date Recorded Sex Assigned at Not on file Legal Sex Female 10:02 PM EDT Gender Identity Not on file Sexual Orientation Not on file documented as of this encounter Plan of Treatment Not on file documented as of this encounter Visit Diagnoses Not on filedocumented in this encounter Care Teams Starch Mangle Tender Relationship Specialty Start Date End Date Alyx Jackson PA [address] [facility] [place] [address] [email or web address] PCP - General Unknown Provider Specialty 01/09/17 documented as of this encounter Additional Source Comments The information contained in this document represents components of the legal health record. It is not the complete legal health record.[facility]
--- OUTSIDE RECORDS SUMMARY | 2025-01-31 09:07 | XMS_ITS | Encounter Summary ---
Author Organization [facility] Address [address] [place] [address] [place] [phone] Phone Care Team Providers Care Hamper Maker Name Role Phone Alyx Jackson Primary Care Provider Encounter Details Date Type Department Care Team (Late st Contact Info) Description 2019 Procedure Pass [address] [address] Social History Tobacco Use Types Packs/Day Years [...] on filedocumented in this encounter Care Teams Hamper Maker Relationship Specialty Start Date End Date Alyx Jackson PA [address] [facility] [place] [address] [email or web address] PCP - General Unknown Provider Specialty 01/09/17 documented as of this encounter Additional Source Comments The information contained in this document represents components of the legal health record. It is not the complete legal health record.[facility]
--- OUTSIDE RECORDS SUMMARY | 2025-01-31 09:07 | XMS_ITS | Encounter Summary ---
Author Organization [facility] Address [address] [place] [address] Phone Care Team Providers Care Mapping Pilot Name Role Phone Alyx Jackson Primary Care Provider Reason for Referral * MRI/CAT Scan - Closed Specialty Diagnoses / Procedures Referred By Arturo harkins Referred To Contact Radiology Diagnoses Abnormal EKG Abnormal exercise tolerance test Procedures NC Myocardial Perfusion Stress Single NC Myocardial Perfusion Exercise Multiple Alyx Jackson PA Phone: tel: fax: [email or web address] Referral ID Status Reason Start Date Expiration Date Visits Re quested Visits Authorized [id number] Closed 01/15/2017 01/15/2018 1 1 Encounter Details Date Type Department Care Team (Late st Contact Info) Description 01/27/2017 Ancillary Orders Non-Invasive Cardiology [address] [place] [address] Alyx Jackson PA [address] [place] [address] [email or web address] Abnormal EKG; Abnormal exercise tolerance test Social [...] on file documented as of this encounter Results * NC Myocardial Perfusion Stress Single (01/26/2017 2:28 PM EST) Anatomical Region Laterality Modality Heart Ultrasound Narrative 01/28/2017 9:15 AM EST Normal study. There is no evidence of myocardial infarction or ischemia. Normal LV size and function with nor regional wall motion abnormalities. Very low likelihood of hemodynamically significant coronary artery disease. Low risk study for myocardial events or cardiac in the next two years. Study Quality Overall image quality is good. There are no artifacts present. NC Study Impression Left ventricular perfusion is normal. Interpretation of the study indicates that it is normal. This is a low risk study. There is no prior study for comparison. Stress Test Result Exercise Stress Test Report: Reason for termination: Summary: Resting ECG:ST HR 102, NSSTW Functional capacity: Good Heart rate response to exercise:Slightly tachycardic secondary to medication hold-appropriate response Blood pressure response to exercise: Normal elevated secondary to medication hold-appropriate response Chest pain:None Arrhythmias:Isolated PVC's ST-T changes:See below Overall impression: Nondiagnostic stress test Conclusion: Jose Miguel Hoang exercised for 8:05 Minutes on a standard Leon protocol achieving 166 MPHR and 10.10 METS. Test terminated due to elevated blood pressure. Summary: 1. EK.5-2.00mm upsloping in Lead II, V4-6 at peak exercise that resolve 6 minutes into recovery. 2. Symptoms: No exertional chest pain or symptoms concerning for angina 3. Exercise physiology: Normal heart rate and BP response to exercise. 02 sat 98% and stable throughout the procedure. Goodfunctional capacity for age noted 4. Arrhythmia: Isolated PVC's Conclusion: Nondiagnostic stress test. 1.5-2.00mm upsloping in Lead II, V4-6 at peak exercise that resolve 6 minutes into recovery. Pt without any chest pain or symptoms concerning for angina. Vital signs at baseline at time of discharge from the lab. Nuclear images to follow. EKG reviewed with Dr. Yousif. Mara Estrella NP Nuclear Cardiology Measurements End systolic (mL): 13 End diastolic (mL): 50 Ejection Fraction (%): 73 Ejection Fraction: Hyperdynamic (>70%) The left ventrical is functioning with normal perfusion quality. Patient was injected with 11.8mCi Tc99m Sestamibi Lt AC IV during stress NC Conclusion Normal study. There is no evidence of myocardial infarction or ischemia. Normal LV size and function with nor regional wall motion abnormalities. Very low likelihood of hemodynamically significant coronary artery disease. Low risk study for myocardial events or cardiac in the next two years. Perfusion Scoring Stress Summed Score: 0 Percent Normal: 0.00% The left ventricular perfusion is normal. us Alyx RIVERA CV NM CARDIAC Final Result documented in this encounter Visit Diagnoses Diagnosis Abnormal EKG Nonspecific abnormal electrocardiogram (ECG) (EKG) Abnormal exercise tolerance test Nonspecific abnormal unspecified cardiovascular function study Abnormal EKG Nonspecific abnormal electrocardiogram (ECG) (EKG) Abnormal exercise tolerance test Nonspecific abnormal unspecified cardiovascular function study documented in this encounter Care Teams Mapping Pilot Relationship Specialty Start Date End Date Alyx Jackson PA [place] [address] [email or web address] PCP - General Unknown Provider Specialty 01/09/17 documented as of this encounter Additional Source Comments The information contained in this document represents components of the legal health record. It is not the complete legal health record.[facility]
--- OUTSIDE RECORDS SUMMARY | 2025-01-31 09:07 | XMS_ITS | Encounter Summary ---
Author Organization [facility] Address [address] [place] [address] Phone Care Team Providers Care Block Sorter Name Role Phone Alyx Jackson Primary Care Provider [phone] Encounter Details Date Type Department Care Team (Latest Contact Info) Description 01/09/2017 Transcribe [facility] [address], [address] [place], [place] [id number] Alyx Jackson PA [address] [place] [address] [email or web address] Abnormal electrocardiogram (Primary Dx) Social History Tobacco Use Types Packs/Day Years Used Date Smoking Tobacco: Never Assessed Comments Unknown Sex and Gender Information Value Date Recorded Sex Assigned at Not on file Legal Sex Female 10:02 PM EDT Gender Identity Not on file Sexual Orientation Not on file documented as of this encounter Plan of Treatment Not on file documented as of this encounter Results * Stress Test Exercise (01/15/2017 1:50 PM EST) Anatomical Region Laterality Modality Heart Ultrasound Narrative 01/19/2017 2:35 PM EST Exercise Stress Test Report: Reason for termination:Fatigue Summary: Resting ECG:SR HR 71 NSSTW Functional capacity:Good Heart rate response to exercise:Appropriate Blood pressure response to exercise:Normal resting BP-appropriate response Chest pain:None Arrhythmias:Isolated PVC's ST-T changes:See below Overall impression: Nondiagnostic stress test Conclusion: Jose Miguel Hoang exercised for 7:33 Minutes on a standard Leon protocol achieving 102% MPHR and 10.10 METS. Test terminated due to fatigue. Summary: 1. EK.5-2.00 mm upsloping in Lead II at peak exercise that continues into late recovery 2. Symptoms: No exertional chest pain or symptoms concerning for angina 3. Exercise physiology: Normal heart rate and BP response to exercise. 02 sat 99% and stable throughout the procedure. Good functional capacity for age noted 4. Arrhythmia: Isolated PVC's Conclusion: Non diagnostic stress test. 1.5-2.00 mm upsloping in Lead II at peak exercise that continues into late recovery. Pt without any chest pain or symptoms concerning for angina. Vital signs at baseline at time of discharge from the lab. Recommend nuclear stress test, scheduled for January 26, 2017. EKG reviewed with . Mara Estrella NP Resting ECG ECG condition: supine. ECG shows sinus rhythm. us Alyx RIVERA CV STRESS ORDERABLES Final Resu lt documented in this encounter Visit Diagnoses Diagnosis Abnormal electrocardiogram- Primary Nonspecific abnormal electrocardiogram (ECG) (EKG) Abnormal electrocardiogram Nonspecific abnormal electrocardiogram (ECG) (EKG) documented in this encounter Care Teams Block Sorter Relationship Specialty Start Date End Date Alyx Jackson PA [address] [place] [address] [email or web address] PCP - General Unknown Provider Specialty 01/09/17 documented as of this encounter Additional Source Comments The information contained in this document represents components of the legal health record. It is not the complete legal health record.[facility]
--- OUTSIDE RECORDS SUMMARY | 2025-01-31 09:08 | XMS_ITS | Encounter Summary ---
Author Organization [facility] Address [address] [place] [address] Phone Care Team Providers Care X Ray Tech Name Role Phone Alyx Jackson Primary Care Provider [phone] Encounter Details Date Type Department Care Team (Latest Contact Info) Description 09/04/2017 Transcribe Orders [address] [address] Alyx Jackson PA [address] [place] [address] [email or web address] Hypothyroidism, unspecified type (Primary Dx) Social History Tobacco Use Types Packs/Day Years Used Date Smoking Tobacco: Never Smokeless Tobacco: Never Alcohol Use Standard Drinks/Week Comments Yes 7 (1 standard drink = 0.6 oz pur e alcohol) Comments Unknown Sex and Gender Information Value Date Recorded Sex Assigned at Not on file Legal Sex Female 10:02 PM EDT Gender Identity Not on file Sexual Orientation Not on file documented as of this encounter Plan of Treatment Not on file documented as of this encounter Results * TSH with reflex (09/04/2017 8:30 AM EDT) TSH 2.65 0.27 - 4.20 uIU/mL [facility] Blood 09/04/2017 8:30 AM EDT 09/04/2017 8:36 AM EDT us Alyx RIVERA LAB BLOOD BKR ORDERABLES Final Result [facility] [address] [place] [address] documented in this encounter Visit Diagnoses Diagnosis Hypothyroidism, unspecified type- Primary documented in this encounter Care Teams X Ray Tech Relationship Specialty Start Date End Date Alyx Jackson PA [address] [place] [address] [email or web address] PCP - General Unknown Provider Specialty 01/09/17 documented as of this encounter Additional Source Comments The information contained in this document represents components of the legal health record. It is not the complete legal health record.[facility]
--- OUTSIDE RECORDS SUMMARY | 2025-01-31 09:08 | XMS_ITS | Encounter Summary ---
Author Organization [facility] Address [address] [place] [address] Phone Care Team Providers Care Applications Support Engineer Name Role Phone Alyx Jackson Primary Care Provider [phone] Encounter Details Date Type Department Care Team (Late st Contact Info) Description 2019 Ancillary Orders Virtual Department [address] [place] [address] Alyx Jackson PA [address] [place] [address] [email or web address] Breast cancer screening by mammogram Social History Tobacco Use Types Packs/Day Years [...] documented as of this encounter Results * BI MAMMOGRAM SCREENING WITH TOMOSYNTHESIS WITH CAD (BILATERAL) (12/29/2019 3:48 PM EDT) Anatomical Region Laterality Modality Breast Left, Breast Right, Breast Bilateral Bila teral Mammography 12/29/2019 6:38 PM EDT Impressions 12/29/2019 6:40 PM EDT No mammographic signs of malignancy. Annual screening is recommended. BI-RADS CATEGORY 1 - NEGATIVE DENSITY: There are scattered fibroglandular densities. Narrative 12/29/2019 6:40 PM EDT Bilateral mammography is performed in conjunction with computed aided detection. 3-D tomography along with 2-D C view imaging was also performed. Comparison made to previous dated as far back as 03/08/2013 and as recent as 10/07/2018. No suspicious masses, areas of architectural distortion or suspicious microcalcifications. Alyx RIVERA IMG MG EXAMS Final Result documented in this encounter Visit Diagnoses Diagnosis Breast cancer screening by mammogram Breast cancer screening by mammogram documented in this encounter Care Teams Applications Support Engineer Relationship Specialty Start Date End Date [place] [address] [email or web address] PCP - General Unknown Provider Specialty 01/09/17 documented as of this encounter Additional Source Comments The information contained in this document represents components of the legal health record. It is not the complete legal health record.[facility]
--- OUTSIDE RECORDS SUMMARY | 2025-01-31 09:08 | XMS_ITS | Encounter Summary ---
Author Organization [facility] Address [address] [place] [address] [place] [address] Phone Care Team Providers Care Mover Name Role Phone Alyx Jackson Primary Care Provider [phone] Encounter Details Date Type Department Care Team (Late st Contact Info) Description 03/18/2023 Procedure Pass [facility], [address] [address] Social History Tobacco Use Types Packs/Day Years Used Date Smoking Tobacco: Never Smokeless Tobacco: Never Alcohol Use Standard Drinks/Week Comments Yes 1 [...] on filedocumented in this encounter Care Teams Mover Relationship Specialty Start Date End Date Alyx Jackson PA [address] [place] [address] [email or web address] PCP - General Unknown Provider Specialty 01/09/17 documented as of this encounter Additional Source Comments The information contained in this document represents components of the legal health record. It is not the complete legal health record.[facility]
--- OUTSIDE RECORDS SUMMARY | 2025-01-31 09:08 | XMS_ITS | Encounter Summary ---
Author Organization [facility] Address [address] [place] [address] Phone Care Team Providers Care Clinical Support Associate Name Role Phone Alyx Jackson Primary Care Provider [phone] Encounter Details Date Type Department Care Team (Late st Contact Info) Description 04/15/2024 Transcribe Orders Virtual Department [address] [place] [address] Rustam Moore MD [address] [place] [phone] Breast screening (Primary Dx) Social History Tobacco Use Types [...] MAMMOGRAM SCREENING WITH TOMOSYNTHESIS WITH CAD (BILATERAL) (10/17/2024 11:46 AM EDT) Anatomical Region Laterality Modality Breast Left, Breast Right, Breast Bilateral Bila teral Mammography 10/18/2024 11:0 7 AM EDT Impressions 10/18/2024 11:08 AM EDT No mammographic evidence of malignancy in either breast. Annual screening mammography is recommended. BI-RADS 1 NEGATIVE The patient will be notified of the results and recommendations. Narrative 10/18/2024 11:08 AM EDT BI MAMMOGRAM SCREENING WITH TOMOSYNTHESIS WITH CAD (BILATERAL) Additional patient information: Screening. COMPARISON: Comparison is made with relevant prior imaging. Breast composition: There are scattered areas of fibroglandular density. FINDINGS: No abnormal masses, suspicious calcifications, or other significant findings are identified mammographically in either breast. There has been no significant interval change. Procedure Note Veronica Donohue MD - 10/18/2024 BI MAMMOGRAM SCREENING WITH TOMOSYNTHESIS WITH CAD (BILATERAL) Additional patient information: Screening. COMPARISON: Comparison is made with relevant prior imaging. Breast composition: There are scattered areas of fibroglandular density. FINDINGS: No abnormal masses, suspicious calcifications, or other significantfindings are identified mammographically in either breast. There has been no significant interval change. IMPRESSION: No mammographic evidence of malignancy in either breast. Annual screening mammography is recommended. BI-RADS 1 NEGATIVE The patient will be notified of the results and recommendations. Rustam Moore MD IMG MG EXAMS Final R esult documented in this encounter Visit Diagnoses Diagnosis Breast screening- Primary Breast screening, unspecified Breast screening Breast screening, unspecified documented in this encounter Care Teams Clinical Support Associate Relationship Specialty Start Date End Date Alyx Jackson PA [address] [place] [address] [email or web address] PCP - General Unknown Provider Specialty 01/09/17 documented as of this encounter Additional Source Comments The information contained in this document represents components of the legal health record. It is not the complete legal health record.[facility]
--- OUTSIDE RECORDS SUMMARY | 2025-01-31 09:08 | XMS_ITS | Encounter Summary ---
Author Organization [facility] Address [address] [place] [address] Phone Care Team Providers Care Service Observer Name Role Phone Alyx Jackson Primary Care Provider Encounter Details Date Type Department Care Team (Latest Contact Info) Description 03/18/2023 Transcribe Orders Virtual Department [address] [place] [address] Alyx Jackson PA [address] [place] [address] [email or web address] Encounter for screening mammogram for malignant neoplasm of breast (Primary Dx) Social History Tobacco Use Types [...] MAMMOGRAM SCREENING WITH TOMOSYNTHESIS WITH CAD (BILATERAL) (03/25/2023 11:00 AM EST) Anatomical Region Laterality Modality Breast Left, Breast Right, Breast Bilateral Bila teral Mammography 03/30/2023 2:50 PM EST Impressions 03/30/2023 4:03 PM EST No mammographic signs of malignancy. Annual screening is recommended. BI-RADS CATEGORY: 2 - Benign finding. DENSITY: There are scattered fibroglandular densities. Narrative 03/30/2023 4:03 PM EST Bilateral mammography is performed in conjunction with computed aided detection. 3-D tomography along with 2-D C view imaging was also performed. Comparison made to previous dated as far back as 07/11/2016 and as recent as 02/20/2022. No suspicious masses, areas of architectural distortion or suspicious microcalcifications. Mild vascular calcifications on the left. Procedure Note Sinan Knight MD - 03/30/2023 Bilateral mammography is performed in conjunction with computed aideddetection. 3-D tomography along with 2-D C view imaging was alsoperformed. Comparison made to previous dated as far back as 07/11/2016 andas recent as 02/20/2022. No suspicious masses, areas of architectural distortion or suspiciousmicrocalcifications. Mild vascular calcifications on the left. IMPRESSION: No mammographic signs of malignancy. Annual screening is recommended. BI-RADS CATEGORY: 2 - Benign finding. DENSITY: There are scattered fibroglandular densities. Alyx RIVERA IMG MG EXAMS Final Result documented in this encounter Visit Diagnoses Diagnosis Encounter for screening mammogram for malignant neoplasm of breast- Primary Encounter for screening mammogram for malignant neoplasm of breast documented in this encounter Care Teams Service Observer Relationship Specialty Start Date End Date Alyx Jackson PA [address] [place] [address] [email or web address] PCP - General Unknown Provider Specialty 01/09/17 documented as of this encounter Additional Source Comments The information contained in this document represents components of the legal health record. It is not the complete legal health record.[facility]
--- OUTSIDE RECORDS SUMMARY | 2025-01-31 09:08 | XMS_ITS | Encounter Summary ---
Author Organization [facility] Address [address] [place] [address] Phone Care Team Providers Care Lobby Porter Name Role Phone Alyx Jackson Primary Care Provider [phone] Encounter Details Date Type Department Care Team (Latest Contact Info) Description 02/11/2022 Transcribe Orders Virtual Department [address] [place] [address] Alyx Jackson PA [address] [place] [address] [email or web address] Breast screening (Primary Dx) Social History Tobacco [...] MAMMOGRAM SCREENING WITH TOMOSYNTHESIS WITH CAD (BILATERAL) (02/20/2022 12:33 PM EST) Anatomical Region Laterality Modality Breast Left, Breast Right, Breast Bilateral Bila teral Mammography 02/23/2022 4:58 PM EST Impressions 02/23/2022 5:02 PM EST BILATERAL BREASTS: Negative, no specific mammographic evidence of malignancy. Normal interval follow-up is recommended in 12 months. BI-RADS: BI-RADS CATEGORY: 1 - Negative. DENSITY: There are scattered fibroglandular densities. Narrative 02/23/2022 5:02 PM EST STUDY: BI MAMMOGRAM SCREENING WITH TOMOSYNTHESIS WITH CAD (BILATERAL) TECHNIQUE: Bilateral full-field digital screening mammography is obtained and read in conjunction with computer-aided detection. Tomosynthesis as well as 2-D C view imaging were obtained. COMPARISON: Comparison made to multiple prior, most recent February 11, 2021, and most remote April 04, 2014. BREAST COMPOSITION: There are scattered areas of fibroglandular density BILATERAL BREASTS: No significant masses, suspicious calcifications or other abnormalities are seen in either breast. Procedure Note Dena Martinez MD - 02/23/2022 STUDY: BI MAMMOGRAM SCREENING WITH TOMOSYNTHESIS WITH CAD (BILATERAL) TECHNIQUE: Bilateral full-field digital screening mammography is obtainedand read in conjunction with computer-aided detection. Tomosynthesis aswell as 2-D C view imaging were obtained. COMPARISON: Comparison made to multiple prior, most recent January, and most remote April 04, 2014. BREAST COMPOSITION: There are scattered areas of fibroglandulardensity BILATERAL BREASTS: No significant masses, suspicious calcifications orother abnormalities are seen in either breast. IMPRESSION: BILATERAL BREASTS: Negative, no specific mammographic evidence ofmalignancy. Normal interval follow-up is recommended in 12 months. BI-RADS: BI-RADS CATEGORY: 1 - Negative. DENSITY: There are scattered fibroglandular densities. Alyx RIVERA IMG MG EXAMS Final Result documented in this encounter Visit Diagnoses Diagnosis Breast screening- Primary Breast screening, unspecified Breast screening Breast screening, unspecified documented in this encounter Care Teams Lobby Porter Relationship Specialty Start Date End Date A[place] [address] .[place] m PCP - General Unknown Provider Specialty 01/09/17 documented as of this encounter Additional Source Comments The information contained in this document represents components of the legal health record. It is not the complete legal health record.[facility]
--- OUTSIDE RECORDS SUMMARY | 2025-01-31 09:08 | XMS_ITS | Encounter Summary ---
Author Organization [facility] Address [address] [place] [address] Phone Care Team Providers Care Mat Maker Name Role Phone Alyx Jackson Primary Care Provider [phone] Encounter Details Date Type Department Care Team (Late st Contact Info) Description 08/18/2018 Ancillary Orders Virtual Department [address] [place] [address] Gabriela Valadez MD [address] [place] [address] [email or web address] Breast screening Social History Tobacco Use Types Packs/Day Years [...] MAMMOGRAM SCREENING WITH TOMOSYNTHESIS WITH CAD (BILATERAL) (10/07/2018 5:38 PM EDT) Anatomical Region Laterality Modality Breast Left, Breast Right, Breast Bilateral Bila teral Mammography 10/08/2018 11:1 3 AM EDT Impressions 10/08/2018 11:14 AM EDT RIGHT breast: No mammographic evidence of malignancy. LEFT breast: No mammographic evidence of malignancy. RECOMMENDED FOLLOWUP: Routine screening mammography is recommended, as clinically appropriate. The results will be sent by mail to the patient. BI-RADS CATEGORY: 1 - Negative. BREAST COMPOSITION: There are scattered fibroglandular densities. POS - [id number] Narrative 10/08/2018 11:14 AM EDT EXAM: BI MAMMOGRAM SCREENING WITH TOMOSYNTHESIS WITH CAD (BILATERAL) HISTORY: Screening. * Annual Breast screening COMPARISON: Prior mammograms, most recent 09/07/2017 and dating back to 2011. TECHNIQUE: Digital breast tomosynthesis was performed in CC and MLO projections. Reconstructed 2-D C-views generated from the tomosynthesis images. Images interpreted in conjunction with R-2 Image Tennis [employer] computer-aided detection (CAD). FINDINGS: BREAST COMPOSITION: There are scattered areas of fibroglandular density. RIGHT breast: There are no suspicious masses, suspicious areas of architectural distortion or suspicious clusters of microcalcifications. LEFT breast: There are no suspicious masses, suspicious areas of architectural distortion or suspicious clusters of microcalcifications. Procedure Note Josey Herzog MD - 10/08/2018 EXAM: BI MAMMOGRAM SCREENING WITH TOMOSYNTHESIS WITH CAD (BILATERAL) HISTORY: Screening. * Annual Breast screening COMPARISON: Prior mammograms, most recent 09/07/2017 and dating back bv3022. TECHNIQUE: Digital breast tomosynthesis was performed in CC and MLOprojections. Reconstructed 2-D C-views generated from the tomosynthesisimages. Images interpreted in conjunction with R-2 Image Checkercomputer-aided detection (CAD). FINDINGS: BREAST COMPOSITION: There are scattered areas of fibroglandular density. RIGHT breast: There are no suspicious masses, suspicious areas ofarchitectural distortion or suspicious clusters of microcalcifications. LEFT breast: There are no suspicious masses, suspicious areas ofarchitectural distortion or suspicious clusters of microcalcifications. IMPRESSION: RIGHT breast: No mammographic evidence of malignancy. LEFT breast: No mammographic evidence of malignancy. RECOMMENDED FOLLOWUP: Routine screening mammography is recommended, asclinically appropriate. The results will be sent by mail to the patient. BI-RADS CATEGORY: 1 - Negative. BREAST COMPOSITION: There are scattered fibroglandular densities. POS - CDHMAM2 us Gabriela Valadez MD IMG MG EXAMS Final Resul t documented in this encounter Visit Diagnoses Diagnosis Breast screening Breast screening, unspecified Breast screening Breast screening, unspecified documented in this encounter Care Teams Mat Maker Relationship Specialty Start Date End Date Alyx Jackson PA [address] [place] [address] [email or web address] PCP - General Unknown Provider Specialty 01/09/17 documented as of this encounter Additional Source Comments The information contained in this document represents components of the legal health record. It is not the complete legal health record.[facility]
--- OUTSIDE RECORDS SUMMARY | 2025-01-31 09:08 | XMS_ITS | Encounter Summary ---
Author Organization [facility] Address [address] [place] [address] Phone Care Team Providers Care Business Applications Analyst Name Role Phone Alyx Jackson Primary Care Provider [phone] Encounter Details Date Type Department Care Team (Latest Contact Info) Description 06/05/2017 Transcribe Orders [address] [address] Alyx Jackson PA [address] [place] [address] [email or web address] Hyperlipidemia, unspecified hyperlipidemia type (Primary Dx); Hypothyroidism, unspecified type; High glucose Social History Tobacco Use Types Packs/Day Years [...] documented as of this encounter Results * Alanine aminotransferase (ALT) (06/05/2017 8:12 AM EDT) ALT 25 0 - 40 U/L [facility] Blood 06/05/2017 8:12 AM EDT 06/05/2017 9:06 AM EDT us Alyx Blume PA LAB BLOOD BKR ORDERABLES Final Result [address] [address] * Aspartate aminotransferase (AST) (06/05/2017 8:12 AM EDT) AST 25 0 - 37 U/L [facility] Blood 06/05/2017 8:12 AM EDT 06/05/2017 9:06 AM EDT us Alyx [email or web address] PA LAB BLOOD BKR ORDERABLES Final Result Performing Organization Address [facility]/ZIP Co de Phone Number [address] [address] * Hemoglobin A1c (06/05/2017 8:12 AM EDT) HEMOGLOBIN A1C 5.4 4.3 - 5.8 % [facility] Blood 06/05/2017 8:12 AM EDT 06/05/2017 9:06 AM EDT us Alyx [email or web address] PA LAB BLOOD BKR ORDERABLES Final Result Performing Organization Address [facility]/ZIP Co de Phone Number [address] [address] * TSH with reflex (06/05/2017 8:12 AM EDT) TSH 2.68 0.27 - 4.20 uIU/mL [facility] Blood 06/05/2017 8:12 AM EDT 06/05/2017 9:06 AM EDT us Alyx Blume PA LAB BLOOD BKR ORDERABLES Final Result Performing Organization Address [facility]/ZIP Co de Phone Number [address] [address] * (ABNORMAL) Lipid panel (06/05/2017 8:12 AM EDT) HDL 79 mg/dL [facility] Comment: Interpretation: Risk Level Females Decreased >55mg/dL Average 50-55 mg/dL Increased <50 mg/dL CHOLESTEROL 237 0 - 240 mg/dL [facility] TRIGLYCERIDES 110 30 - 160 mg/dL [facility] LDL 136(H) 50 - 129 mg/dL [facility] Comment: LDL levels in terms of risk for coronary heart disease: <100 mg/dL: Optimal 100-129 mg/dL: Near or above optimal 130-159 mg/dL: Borderline high 160-189 mg/dL: High >190 mg/dL: Very High CARDIAC RISK RATIO 3.0(L) 3.3 - 4.4 [facility] Blood 06/05/2017 8:12 AM EDT 06/05/2017 9:06 AM EDT us Alyx RIVERA LAB BLOOD BKR ORDERABLES Final Result Performing Organization Address City/State/[facility] Co de Phone Number [address] [address] documented in this encounter Visit Diagnoses Diagnosis Hyperlipidemia, unspecified hyperlipidemia type- Primary Hypothyroidism, unspecified type High glucose documented in this encounter Care Teams Business Applications Analyst Relationship Specialty Start Date End Date Alyx Jackson [place] [address] [email or web address] PCP - General Unknown Provider Specialty 01/09/17 documented as of this encounter Additional Source Comments The information contained in this document represents components of the legal health record. It is not the complete legal health record.[facility]
--- OUTSIDE RECORDS SUMMARY | 2025-01-31 09:08 | XMS_ITS | Encounter Summary ---
Author Organization [facility] Address [address] [facility] [address] [place] [address] Phone Care Team Providers Care Switch Operator Name Role Phone Alyx Jackson Primary Care Provider [phone] Encounter Details Date Type Department Care Team (Late st Contact Info) Description 07/02/2022 Community Orders [facility] Sully Meraz MD [place], [place] [address] Social History Tobacco Use Types Packs/Day Years Used Date Smoking Tobacco: Never Smokeless Tobacco: Never Alcohol Use Standard Drinks/Week Comments Yes 7 (1 standard drink = 0.6 oz pur e alcohol) Education Answer Date Recorded Are you interested in more education? Not on angela e 06/27/2022 Are you concerned about learning? Not on file 06/27/2022 No 06/27/2022 No 06/27/2022 Intimate Partner Violence Answer Date R ecorded [...] on filedocumented in this encounter Care Teams Switch Operator Relationship Specialty Start Date End Date Alyx Jackson PA [address] [place] [address] [email or web address] PCP - General Unknown Provider Specialty 01/09/17 documented as of this encounter Additional Source Comments The information contained in this document represents components of the legal health record. It is not the complete legal health record.[facility]
--- OUTSIDE RECORDS SUMMARY | 2025-01-31 09:08 | XMS_ITS | Encounter Summary ---
Author Organization [facility] Address [address] [place] [address] Phone Care Team Providers Care Asbestos Abatement Worker Name Role Phone Alyx Jackson Primary Care Provider [phone] Encounter Details Date Type Department Care Team (Late st Contact Info) Description 07/30/2017 Ancillary Orders Virtual Department [address] [place] [id number] Gabriela Valadez MD [address] [place] [phone] [email or web address] Breast screening Social History Tobacco Use Types [...] MAMMOGRAM SCREENING WITH TOMOSYNTHESIS WITH CAD (BILATERAL) (09/07/2017 3:40 PM EDT) Anatomical Region Laterality Modality Breast Left, Breast Right, Breast Bilateral Bila teral Mammography 09/07/2017 5:53 PM EDT Impressions 09/07/2017 5:55 PM EDT No findings suspicious for malignancy are identified. In the absence of a worrisome palpable abnormality, annual screening mammography is recommended. BI-RADS CATEGORY: 1 - Negative. DENSITY: There are scattered fibroglandular densities. POS [email or web address] Narrative 09/07/2017 5:55 PM EDT COMPARISON: 01/09/2011 through 07/11/2016 Bilateral 3-D tomosynthesis with 2-D reconstructions in the CC and MLO projection. Computer-aided detection system also utilized. No new mass, asymmetry, architectural distortion or suspicious calcifications have become apparent on either side. Procedure Note Lennie Antunez MD - 09/07/2017 COMPARISON: 01/09/2011 through 07/11/2016 Bilateral 3-D tomosynthesis with 2-D reconstructions in the CC and MLOprojection. Computer-aided detection system also utilized. No new mass, asymmetry, architectural distortion or suspiciouscalcifications have become apparent on either side. IMPRESSION: No findings suspicious for malignancy are identified. In the absence of aworrisome palpable abnormality, annual screening mammography isrecommended. BI-RADS CATEGORY: 1 - Negative. DENSITY: There are scattered fibroglandular densities. POS CDHMAM2 Gabriela Valadez MD IMG MG EXAMS Final Resul t documented in this encounter Visit Diagnoses Diagnosis Breast screening Breast screening, unspecified Breast screening Breast screening, unspecified documented in this encounter Care Teams Asbestos Abatement Worker Relationship Specialty Start Date End Date Alyx Jackson [place] [address] [email or web address] PCP - General Unknown Provider Specialty 01/09/17 documented as of this encounter Additional Source Comments The information contained in this document represents components of the legal health record. It is not the complete legal health record.[facility]
--- OUTSIDE RECORDS SUMMARY | 2025-01-31 09:08 | XMS_ITS | Encounter Summary ---
Author Organization [facility] Address [address] [place] [address] [place] [address] Phone Care Team Providers Care Quill Picking Machine Operator Name Role Phone Alyx Jackson Primary Care Provider [phone] Encounter Details Date Type Department Care Team (Late st Contact Info) Description 02/11/2022 Procedure Pass [address] [address] Social History Tobacco Use Types Packs/Day Years [...] on filedocumented in this encounter Care Teams Quill Picking Machine Operator Relationship Specialty Start Date End Date Alyx Jackson PA [address] [place] [address] .[facility] PCP - General Unknown Provider Specialty 01/09/17 documented as of this encounter Additional Source Comments The information contained in this document represents components of the legal health record. It is not the complete legal health record.[facility]
--- OUTSIDE RECORDS SUMMARY | 2025-01-31 09:08 | XMS_ITS | Encounter Summary ---
Author Organization [facility] Address [address] [facility] [address] [place] [address] Phone Care Team Providers Care Community Service Manager Name Role Phone Alyx Jackson Primary Care Provider [phone] Encounter Details Date Type Department Care Team (Latest Contact Info) Description 07/30/2018 Transcribe Orders [address] [address] Alyx Jackson PA [address] [place] [address] [email or web address] Hypertension, unspecified type (Primary Dx); Hypothyroidism, unspecified type Social History Tobacco Use Types Packs/Day Years [...] documented as of this encounter Results * (ABNORMAL) URINALYSIS WITH SEDIMENT (07/30/2018 8:15 AM EDT) WBC NONE SEEN NONE SEEN /hpf [facility] RBC NONE SEEN NONE SEEN /hpf [facility] URINE EPITHELIAL 0-4(A) NONE SEEN [facility] MUCUS NONE SEEN NONE SEEN /hpf [facility] BACTERIA NONE SEEN NONE SEEN [facility] COLOR Yellow Yellow [facility] CLARITY Clear [facility] GLUCOSE Negative Negative [facility] BILI Negative Negative [facility] KETONES Negative Negative [facility] SPECIFIC GRAVITY <1.005 1.005 - 1.030 [facility] BLOOD Negative Negative [facility] PH 6.5 5.0 - 8.0 [facility] Protein-UA Negative Negative [facility] NITRITE Negative Negative [facility] Leukocyte esterase, ur Negative Negative [facility] Urine (Urine) 07/30/2018 8:1 5 AM EDT 07/30/2018 8:55 AM EDT [email or web address] URINE ORDERABLES Final Resu lt [address] [address] * TSH with reflex (07/30/2018 8:15 AM EDT) TSH 3.02 0.27 - 4.20 uIU/mL [facility] Blood 07/30/2018 8:15 AM EDT 07/30/2018 8:55 AM EDT A[facility] BLO[facility] BKR ORDERABLES Final Result Performing Organization Address City/[facility]/ZIP Co de Phone Number [address] [address] * Basic metabolic panel (07/30/2018 8:15 AM EDT) SODIUM 139 133 - 146 mmol/L [facility] CHLORIDE 99 96 - 108 mmol/L [facility] POTASSIUM 3.7 3.3 - 5.1 mmol/L [facility] CO2 29 21 - 35 mmol/L [facility] BUN 14 6 - 19 mg/dL [facility] CREATININE 0.70 0.5 - 1.5 mg/dL [facility] GLUCOSE 96 70 - 99 mg/dL [facility] CALCIUM 9.4 8.4 - 10.3 mg/dL [facility] EGFR 89 >59 mL/min/1.7 3m2 [facility] Comment:If patient is black, multiply result by 1.159. Estimated glomerular filtration rate calculated using the CKD-EPI equation. ANION GAP 15 10 - 20 mmol/L [facility] Blood 07/30/2018 8:15 AM EDT 07/30/2018 8:55 AM EDT us Alyx [facility] BKR ORDERABLES Final Result Performing Organization Address City/State/[facility] Co de Phone Number [address] [address] documented in this encounter Visit Diagnoses Diagnosis Hypertension, unspecified type- Primary Hypothyroidism, unspecified type documented in this encounter Care Teams Community Service Manager Relationship Specialty Start Date End Date Alyx Jackson PA [address] [place] [address] [email or web address] PCP - General Unknown Provider Specialty 01/09/17 documented as of this encounter Additional Source Comments The information contained in this document represents components of the legal health record. It is not the complete legal health record.[facility]
--- OUTSIDE RECORDS SUMMARY | 2025-01-31 09:08 | XMS_ITS | Encounter Summary ---
Author Organization [facility] Address [address] [place] [address] [place] [address] Phone Care Team Providers Care Chief Controller Name Role Phone Alyx Jackson Primary Care Provider [phone] Encounter Details Date Type Department Care Team (Late st Contact Info) Description 04/01/2017 Procedure Pass [facility] Admitting Dept Virtual Department [address] [place] [address] Social History Tobacco Use Types Packs/Day Years [...] on filedocumented in this encounter Care Teams Chief Controller Relationship Specialty Start Date End Date Alyx Jackson PA [address] [place] [address] [email or web address] PCP - General Unknown Provider Specialty 01/09/17 documented as of this encounter Additional Source Comments The information contained in this document represents components of the legal health record. It is not the complete legal health record.[facility]
--- OUTSIDE RECORDS SUMMARY | 2025-01-31 09:08 | XMS_ITS | Encounter Summary ---
Author Organization [facility] Address [address] [place] [address] [place] [address] Phone Care Team Providers Care Metal Dresser Name Role Phone Alyx Jackson Primary Care Provider [phone] Encounter Details Date Type Department Care Team (Latest Contact Info) Description 07/14/2017 Transcribe Orders [address] [address] Alyx Jackson PA [address] [place] [address] [email or web address] Microhematuria (Primary Dx) Social History Tobacco Use Types [...] as of this encounter Results * (ABNORMAL) Urinalysis with sediment (07/14/2017 8:43 AM EDT) WBC 21-49(A) NONE SEEN /hpf [facility] RBC NONE SEEN NONE SEEN /hpf [facility] URINE EPITHELIAL 0-4(A) NONE SEEN [facility] MUCUS Trace(A) NONE SEEN /hpf [facility] BACTERIA Trace(A) NONE SEEN [facility] COLOR Yellow Yellow [facility] CLARITY Clear [facility] GLUCOSE Negative Negative [facility] BILI Negative Negative [facility] KETONES Negative Negative [facility] SPECIFIC GRAVITY 1.010 1.005 - 1.030 [facility] BLOOD Negative Negative [facility] PH 7.0 5.0 - 8.0 [facility] Protein-UA Trace(A) Negative [facility] NITRITE Negative Negative [facility] Leukocyte esterase, ur 2+(A) Negative [facility] Urine (Urine) 07/14/2017 8:4 3 AM EDT 07/14/2017 8:47 AM EDT us Alyx [facility] URINE ORDERABLES Final Resu lt Performing Organization Address City/State/[facility] Co de Phone Number [facility] [address] [place] [address] documented in this encounter Visit Diagnoses Diagnosis Microhematuria- Primary documented in this encounter Care Teams Metal Dresser Relationship Specialty Start Date End Date Alyx Jakcson PA [address] [place] [address] [email or web address] PCP - General Unknown Provider Specialty 01/09/17 documented as of this encounter Additional Source Comments The information contained in this document represents components of the legal health record. It is not the complete legal health record.[facility]
--- OUTSIDE RECORDS SUMMARY | 2025-01-31 09:08 | XMS_ITS | Encounter Summary ---
Author Organization [facility] Address [address] [place] [address] [place] [address] Phone Care Team Providers Care Managing Director Name Role Phone Alyx Jackson Primary Care Provider [phone] Encounter Details Date Type Department Care Team (Latest Contact Info) Description 03/10/2018 Transcribe Orders [address] [address] Alyx Jackson PA [address] [place] [address] [email or web address] Hypertension, unspecified type (Primary Dx); Hyperlipidemia, unspecified hyperlipidemia type; Hypothyroidism, unspecified type Social History Tobacco Use [...] encounter Results * (ABNORMAL) Urinalysis with sediment (03/10/2018 8:05 AM EST) WBC 11-20(A) NONE SEEN /hpf [facility] RBC 6-10(A) NONE SEEN /hpf [facility] URINE EPITHELIAL 5-10(A) NONE SEEN [facility] MUCUS Trace(A) NONE SEEN /hpf [facility] BACTERIA Trace(A) NONE SEEN [facility] COLOR Yellow Yellow [facility] CLARITY Clear [facility] GLUCOSE Negative Negative [facility] BILI Negative Negative [facility] KETONES Negative Negative [facility] SPECIFIC GRAVITY 1.015 1.005 - 1.030 [facility] BLOOD Negative Negative [facility] PH 7.0 5.0 - 8.0 [facility] Protein-UA Negative Negative [facility] NITRITE Negative Negative [facility] Leukocyte esterase, ur 2+(A) Negative [facility] Urine (Urine) 03/10/2018 8:0 5 AM EST 03/10/2018 8:18 AM EST [facility] URINE ORDERAB[facility] Final Resu lt Performing Organization Address [facility]/ZIP Co de Phone Number [address] [address] * Hemoglobin A1c (03/10/2018 8:05 AM EST) HEMOGLOBIN A1C 5.6 4.3 - 5.8 % [facility] Blood 03/10/2018 8:05 AM EST 03/10/2018 8:18 AM EST Aly[facility] BKR ORDERABLES Final Result Performing Organization Address [facility] Co de Phone Number [address] [address] * (ABNORMAL) CBC and differential (03/10/2018 8:05 AM EST) WBC 8.09 3.40 - 11.20 K/uL [facility] RBC 4.62 3.80 - 4.80 M/uL [facility] HGB 14.0 12.0 - 15.0 g/dL [facility] HCT 40.8 36.0 - 46.0 % [facility] PLT 232 130 - 400 K/uL [facility] MCV 88.3 79.0 - 98.0 fL [facility] MCH 30.3 27.0 - 34.8 pg [facility] MCHC 34.3 31.5 - 36.0 g/dL [facility] RDW 12.1 10.8 - 14.6 % [facility] MPV 11.3 9.4 - 12.4 fl [facility] NRBC 0.00 0.00 /100 WBCs [facility] ABSOLUTE NRBC 0.00 0.00 K/uL [facility] DIFF METHOD Auto [facility] NEUTS 58.4 45.30 - 77.70 % [facility] LYMPHS 24.7 12.30 - 39.70 % [facility] MONOS 8.2 4.10 - 12.80 % [facility] EOS 7.4(H) 0 - 7.2 % [facility] BASOS 0.9 0 - 2.80 % [facility] Granulocytes, immature (%) 0.4 0.0 - 0.9 % [facility] ABSOLUTE NEUTS 4.73 1.40 - 7.70 K/uL [facility] ABSOLUTE LYMPHS 2.00 0.60 - 3.20 K/uL [facility] ABSOLUTE MONOS 0.66(H) 0.11 - 0.59 K/uL [facility] ABSOLUTE EOS 0.60(H) 0.01 - 0.50 K/uL [facility] ABSOLUTE BASOS 0.07 0.00 - 0.08 K/uL [facility] Granulocytes, immature 0.03 0.00 - 0.05 K/uL [facility] Blood 03/10/2018 8:05 AM EST 03/10/2018 8:18 AM EST us Alyx [facility] BKR ORDERABLES Final Result [facility] [address] [place] [address] * TSH with reflex (03/10/2018 8:05 AM EST) TSH 1.81 0.27 - 4.20 uIU/mL [facility] Blood 03/10/2018 8:05 AM EST 03/10/2018 8:18 AM EST us Alyx [facility]LO[facility] BKR ORDERABLES Final Result Performing Organization Address [facility] Co de Phone Number [address] [address] * (ABNORMAL) Lipid panel (03/10/2018 8:05 AM EST) HDL 61 mg/dL [facility] Comment: Interpretation <40 mg/dL: Low HDL cholesterol (major risk factor for CHD) Greater than or equal to 60 mg/dL: High HDL cholesterol ( negative risk factor for CHD) HDL - cholesterol is affected by a number of factors, e.g. smoking, excerise, hormones, sex and age. CHOLESTEROL 196 0 - 240 mg/dL [facility] TRIGLYCERIDES 96 30 - 160 mg/dL [facility] LDL 116 50 - 129 mg/dL [facility] Comment: LDL levels in terms of risk for coronary heart disease: <100 mg/dL: Optimal 100-129 mg/dL: Near or above optimal 130-159 mg/dL: Borderline high 160-189 mg/dL: High >190 mg/dL: Very High CARDIAC RISK RATIO 3.2(L) 3.3 - 4.4 C [facility] Blood 03/10/2018 8:05 AM EST 03/10/2018 8:18 AM EST Aly[facility]LO[facility] BKR ORDERABLES Final Result Performing Organization Address [facility] Co de Phone Number [address] [address] * Comprehensive metabolic panel (03/10/2018 8:05 AM EST) SODIUM 139 133 - 146 mmol/L [facility] POTASSIUM 3.6 3.3 - 5.1 mmol/L [facility] CHLORIDE 98 96 - 108 mmol/L [facility] CO2 30 21 - 35 mmol/L [facility] BUN 16 6 - 19 mg/dL [facility] CREATININE 0.70 0.5 - 1.5 mg/dL [facility] GLUCOSE 98 70 - 99 mg/dL [facility] ALBUMIN 4.0 3.9 - 4.8 g/dL [facility] TOTAL PROTEIN 7.1 6.5 - 8.0 g/dL [facility] CALCIUM 9.5 8.4 - 10.3 mg/dL [facility] ALKALINE PHOSPHATASE 68 39 - 117 U/L [facility] TOTAL BILIRUBIN 0.5 0.0 - 1.2 mg/dL [facility] AST 16 0 - 37 U/L [facility] ALT 14 0 - 40 U/L [facility] GLOBULIN 3.1 1 - 4.8 g/dL [facility] EGFR 89 >59 mL/min/1.7 3m2 [facility] Comment:If patient is black, multiply result by 1.159. Estimated glomerular filtration rate calculated using the CKD-EPI equation. ANION GAP 15 10 - 20 mmol/L [facility] Blood 03/10/2018 8:05 AM EST 03/10/2018 8:18 AM EST us Alyx [facility]LO[facility] BKR ORDERABLES Final Result Performing Organization Address City/State/[facility] Co de Phone Number [address] [address] documented in this encounter Visit Diagnoses Diagnosis Hypertension, unspecified type- Primary Hyperlipidemia, unspecified hyperlipidemia type Hypothyroidism, unspecified type documented in this encounter Care Teams Managing Director Relationship Specialty Start Date End Date Alyx Jackson PA [address] [place] [address] [email or web address] PCP - General Unknown Provider Specialty 01/09/17 documented as of this encounter Additional Source Comments The information contained in this document represents components of the legal health record. It is not the complete legal health record.[facility]
--- OUTSIDE RECORDS SUMMARY | 2025-01-31 09:08 | XMS_ITS | Encounter Summary ---
Author Organization [facility] Address [address] [place] [address] [place] [address] Phone Care Team Providers Care Oil Well Service Unit Operator Name Role Phone Alyx Jackson Primary Care Provider [phone] Encounter Details Date Type Department Care Team (Late st Contact Info) Description 04/15/2024 Procedure Pass [facility], [address] [address] Social History Tobacco Use Types Packs/Day Years [...] on filedocumented in this encounter Care Teams Oil Well Service Unit Operator Relationship Specialty Start Date End Date Alyx Jackson PA [address] [place] [address] [email or web address] PCP - General Unknown Provider Specialty 01/09/17 documented as of this encounter Additional Source Comments The information contained in this document represents components of the legal health record. It is not the complete legal health record.[facility]
--- OUTSIDE RECORDS SUMMARY | 2025-01-31 09:08 | XMS_ITS | Encounter Summary ---
Author Organization [facility] Address [address] [place] [address] [place] [address] Phone Care Team Providers Care Wave Guide Assembler Name Role Phone Alyx Jackson Primary Care Provider [phone] Encounter Details Date Type Department Care Team (Latest Contact Info) Description 04/22/2017 Transcribe Orders [address] [address] Alyx Jackson PA [address] [place] [address] [email or web address] Hypertension, unspecified type (Primary Dx); Hyperlipidemia, unspecified [...] encounter Results * (ABNORMAL) Urinalysis with sediment (04/22/2017 9:35 AM EST) WBC 21-49(A) NONE SEEN /hpf [facility] RBC 3-5(A) NONE SEEN /hpf [facility] URINE EPITHELIAL 5-10(A) NONE SEEN [facility] MUCUS Trace(A) NONE SEEN /hpf [facility] BACTERIA 1+(A) NONE SEEN [facility] CRYSTALS 1+ [facility] Comment:AMORPHOUS COLOR Yellow Yellow [facility] CLARITY HAZY [facility] GLUCOSE Negative Negative [facility] BILI Negative Negative [facility] KETONES Negative Negative [facility] SPECIFIC GRAVITY 1.015 1.005 - 1.030 [facility] BLOOD Negative Negative [facility] PH 8.5(H) 5.0 - 8.0 [facility] Protein-UA Trace(A) Negative [facility] NITRITE Negative Negative [facility] Leukocyte esterase, ur 1+(A) Negative [facility] Urine (Urine) 04/22/2017 9:3 5 AM EST 04/22/2017 9:37 AM EST Alyx [facility] URINE ORDERABLES Final Resu lt Performing Organization Address City/State/[facility] Co de Phone Number [address] [address] * CBC (04/22/2017 8:12 AM EST) WBC 6.28 3.40 - 11.20 K/uL [facility] RBC 4.41 3.80 - 4.80 M/uL [facility] HGB 13.6 12.0 - 15.0 g/dL [facility] HCT 40.0 36.0 - 46.0 % [facility] PLT 220 130 - 400 K/uL [facility] MCV 90.7 79.0 - 98.0 fL [facility] MCH 30.8 27.0 - 34.8 pg [facility] MCHC 34.0 31.5 - 36.0 g/dL [facility] RDW 12.3 10.8 - 14.6 % [facility] MPV 10.6 9.4 - 12.4 fl [facility] NRBC 0.00 /100 WBCs [facility] ABSOLUTE NRBC 0.00 K/uL [facility] Blood 04/22/2017 8:12 AM EST 04/22/2017 8:46 AM EST us Alyx [facility] BLOOD BKR ORDERABLES Final Result [address] [address] * (ABNORMAL) TSH with reflex (04/22/2017 8:12 AM EST) TSH 4.51(H) 0.27 - 4.20 uIU/mL [facility] Blood 04/22/2017 8:12 AM EST 04/22/2017 8:46 AM EST Alyx Manuel [place] LAB BLOOD BKR ORDERABLES Final Result Performing Organization Address [facility] Co de Phone Number [address] [address] * (ABNORMAL) Lipid panel (04/22/2017 8:12 AM EST) HDL 74 mg/dL [facility] Comment: Interpretation: Risk Level Females Decreased >55mg/dL Average 50-55 mg/dL Increased <50 mg/dL CHOLESTEROL 249(H) 0 - 240 mg/dL [facility] TRIGLYCERIDES 134 30 - 160 mg/dL [facility] LDL 148(H) 50 - 129 mg/dL [facility] Comment: LDL levels in terms of risk for coronary heart disease: <100 mg/dL: Optimal 100-129 mg/dL: Near or above optimal 130-159 mg/dL: Borderline high 160-189 mg/dL: High >190 mg/dL: Very High CARDIAC RISK RATIO 3.4 3.3 - 4.4 C [facility] Blood 04/22/2017 8:12 AM EST 04/22/2017 8:46 AM EST Alyx Manuel [place] LAB BLOOD BKR ORDERABLES Final Result Performing Organization Address City/[facility]/ZIP Co de Phone Number [address] [address] * (ABNORMAL) Comprehensive metabolic panel (04/22/2017 8:12 AM EST) SODIUM 142 133 - 146 mmol/L [facility] POTASSIUM 4.1 3.3 - 5.1 mmol/L [facility] CHLORIDE 100 96 - 108 mmol/L [facility] CO2 30 21 - 35 mmol/L [facility] BUN 15 6 - 19 mg/dL [facility] CREATININE 0.70 0.5 - 1.5 mg/dL [facility] GLUCOSE 101(H) 70 - 99 mg/dL [facility] ALBUMIN 4.0 3.9 - 4.8 g/dL [facility] TOTAL PROTEIN 6.7 6.5 - 8.0 g/dL [facility] CALCIUM 9.3 8.4 - 10.3 mg/dL [facility] ALKALINE PHOSPHATASE 59 39 - 117 U/L [facility] TOTAL BILIRUBIN 0.7 0 - 1.2 mg/dL [facility] AST 23 0 - 37 U/L [facility] ALT 21 0 - 40 U/L [facility] GLOBULIN 2.7 1 - 4.8 g/dL [facility] EGFR >60 >60 mL/min/1.7 3m2 [facility] Comment:Abnormal if <60. If patient is -Uzbek, multiply the result by 1.21. ANION GAP 16 10 - 20 mmol/L [facility] Blood 04/22/2017 8:12 AM EST 04/22/2017 8:46 AM EST us Alyx [facility] BLOOD BKR ORDERABLES Final Result Performing Organization Address City/State/[facility] Co de Phone Number [address] [address] documented in this encounter Visit Diagnoses Diagnosis Hypertension, unspecified type- Primary Hyperlipidemia, unspecified hyperlipidemia type Hypothyroidism, unspecified type documented in this encounter Care Teams Wave Guide Assembler Relationship Specialty Start Date End Date Alyx Jackson [place] [address] [email or web address] PCP - General Unknown Provider Specialty 01/09/17 documented as of this encounter Additional Source Comments The information contained in this document represents components of the legal health record. It is not the complete legal health record.[facility]
--- OUTSIDE RECORDS SUMMARY | 2025-01-31 09:08 | XMS_ITS | Encounter Summary ---
Author Organization [facility] Address [address] [place] [id number] Phone Care Team Providers Care Almond Paste Molder Name Role Phone Alyx Jackson Primary Care Provider [phone] Encounter Details Date Type Department Care Team ([facility] st Contact Info) Description 06/25/2022 Procedure Pass [facility] Endoscopy Admitting Dept Virtual Department [address] [place] [address] Social History Tobacco Use Types Packs/Day Years [...] on filedocumented in this encounter Care Teams Almond Paste Molder Relationship Specialty Start Date End Date Alyx Jackson PA [address] [place] [address] [email or web address] PCP - General Unknown Provider Specialty 01/09/17 documented as of this encounter Additional Source Comments The information contained in this document represents components of the legal health record. It is not the complete legal health record.[facility]
--- OUTSIDE RECORDS SUMMARY | 2025-01-31 09:08 | XMS_ITS | Encounter Summary ---
Author Organization [facility] Address [address] [place] [address] [place] [address] Phone Care Team Providers Care Supervisor Cell Efficiency Name Role Phone Alyx Jackson Primary Care Provider [phone] Encounter Details Date Type Department Care Team (Latest Contact Info) Description 03/31/2019 Transcribe Orders [address] [address] Alyx Jackson PA [address] [place] [address] [email or web address] Hypertension, unspecified type (Primary Dx); Other specified hypothyroidism; Hyperlipidemia, unspecified hyperlipidemia type Social History Tobacco Use Types Packs/Day [...] of this encounter Results * (ABNORMAL) Urinalysis (03/31/2019 8:10 AM EST) COLOR Yellow Yellow [facility] CLARITY Clear [facility] GLUCOSE Negative Negative [facility] BILI Negative Negative [facility] KETONES Negative Negative [facility] SPECIFIC GRAVITY 1.010 1.005 - 1.030 [facility] BLOOD Negative Negative [facility] PH 7.0 5.0 - 8.0 [facility] Protein-UA Negative Negative [facility] NITRITE Negative Negative [facility] Leukocyte esterase, ur 2+(A) Negative [facility] Urine (Urine) 03/31/2019 8:1 0 AM EST 03/31/2019 8:24 AM EST us Alyx [facility] URINE ORDERABLES Final Resu lt [address] [address] * CBC (03/31/2019 8:10 AM EST) WBC 8.71 3.40 - 11.20 K/uL [facility] RBC 4.73 3.80 - 4.80 M/uL [facility] HGB 14.3 12.0 - 15.0 g/dL [facility] HCT 42.1 36.0 - 46.0 % [facility] PLT 222 130 - 400 K/uL [facility] MCV 89.0 79.0 - 98.0 fL [facility] MCH 30.2 27.0 - 34.8 pg [facility] MCHC 34.0 31.5 - 36.0 g/dL [facility] RDW 12.1 10.8 - 14.6 % [facility] MPV 11.2 9.4 - 12.4 fl [facility] NRBC 0.00 0.00 /100 WBCs [facility] ABSOLUTE NRBC 0.00 0.00 K/uL [facility] Blood 03/31/2019 8:10 AM EST 03/31/2019 8:24 AM EST us Alyx [facility] BLOOD BKR ORDERABLES Final Result [address] [address] * TSH with reflex (03/31/2019 8:10 AM EST) TSH 2.69 0.27 - 4.20 uIU/mL [facility] Blood 03/31/2019 8:10 AM EST 03/31/2019 8:24 AM EST us Alyx [facility] BLOOD BKR ORDERABLES Final Result Performing Organization Address [facility] Co de Phone Number [address] [address] * (ABNORMAL) Lipid panel (03/31/2019 8:10 AM EST) HDL 65 mg/dL [facility] Comment: Interpretation <40 mg/dL: Low HDL cholesterol (major risk factor for CHD) Greater than or equal to 60 mg/dL: High HDL cholesterol ( negative risk factor for CHD) HDL - cholesterol is affected by a number of factors, e.g. smoking, excerise, hormones, sex and age. CHOLESTEROL 206 0 - 240 mg/dL [facility] TRIGLYCERIDES 108 30 - 160 mg/dL [facility] LDL 119 50 - 129 mg/dL [facility] Comment: LDL levels in terms of risk for coronary heart disease: <100 mg/dL: Optimal 100-129 mg/dL: Near or above optimal 130-159 mg/dL: Borderline high 160-189 mg/dL: High >190 mg/dL: Very High CARDIAC RISK RATIO 3.2(L) 3.3 - 4.4 C [facility] Blood 03/31/2019 8:10 AM EST 03/31/2019 8:24 AM EST us Alyx [facility] BLOOD BKR ORDERABLES Final Result Performing Organization Address [facility]/ZIP Co de Phone Number [address] [address] * (ABNORMAL) Comprehensive metabolic panel (03/31/2019 8:10 AM EST) SODIUM 138 133 - 146 mmol/L [facility] POTASSIUM 3.7 3.3 - 5.1 mmol/L [facility] CHLORIDE 98 96 - 108 mmol/L [facility] CO2 27 21 - 35 mmol/L [facility] BUN 15 6 - 19 mg/dL [facility] CREATININE 0.70 0.5 - 1.5 mg/dL [facility] GLUCOSE 107(H) 70 - 99 mg/dL [facility] ALBUMIN 4.3 3.9 - 4.8 g/dL [facility] TOTAL PROTEIN 7.4 6.5 - 8.0 g/dL [facility] CALCIUM 9.9 8.4 - 10.3 mg/dL [facility] ALKALINE PHOSPHATASE 66 39 - 117 U/L [facility] TOTAL BILIRUBIN 0.5 0.0 - 1.2 mg/dL [facility] AST 25 0 - 37 U/L [facility] ALT 19 0 - 40 U/L [facility] GLOBULIN 3.1 1 - 4.8 g/dL [facility] EGFR 88 >59 mL/min/1.7 3m2 [facility] Comment:If patient is black, multiply result by 1.159. Estimated glomerular filtration rate calculated using the CKD-EPI equation. ANION GAP 17 10 - 20 mmol/L [facility] Blood 03/31/2019 8:10 AM EST 03/31/2019 8:24 AM EST us Alyx [facility] BLOOD BKR ORDERABLES Final Result Performing Organization Address City/State/[facility] Co de Phone Number [address] [address] documented in this encounter Visit Diagnoses Diagnosis Hypertension, unspecified type- Primary Other specified hypothyroidism Hyperlipidemia, unspecified hyperlipidemia type documented in this encounter Care Teams Supervisor Cell Efficiency Relationship Specialty Start Date End Date Alyx Jackson PA [address] [place] [address] bre PCP - General Unknown Provider Specialty 01/09/17 documented as of this encounter Additional Source Comments The information contained in this document represents components of the legal health record. It is not the complete legal health record.[facility]
[2025-01-31 09:17] VITALS: BP 128/82; PULSE 94; RESP 16; TEMP 36.4; O2SAT 99; BMI 32.1
== END 2025-01-31 09:55 | disposition home or self-care (01) ==
LOC: HO.HMCFM 08:52
PROVIDERS: PCP Family Medicine; Visit Provider Family Medicine
DX: Z00.00 Encounter for general adult medical examination without abnormal findings (principal); I10 Essential (primary) hypertension; E78.00 Pure hypercholesterolemia, unspecified; E03.9 Hypothyroidism, unspecified; R73.01 Impaired fasting glucose; Z86.0100 Personal history of colon polyps, unspecified

== ENCOUNTER → 2025-01-31 08:51 | Outpatient (BNVA) | payer MEDICARE, SELFPAY | PROVIDERS: PCP Family Medicine; Visit Provider Family Medicine | DX: Z00.00 Encounter for general adult medical examination without abnormal findings (principal); I10 Essential (primary) hypertension; E78.00 Pure hypercholesterolemia, unspecified; E03.9 Hypothyroidism, unspecified; R73.01 Impaired fasting glucose; Z86.0100 Personal history of colon polyps, unspecified; Z13.31 Encounter for screening for depression; Z13.39 Encounter for screening examination for other mental health and behavioral disorders | CPT/HCPCS: 96127; 99397 ==

== ENCOUNTER 2025-02-07 08:58 | Outpatient (REF) | payer MEDICARE, SELFPAY ==
[2025-02-07 10:58] LABS: MANUAL DIFF FLAG NO
[2025-02-07 11:07] LABS: Hematocrit 38.9 % (37.0-47.0); Hemoglobin 13.7 g/dl (12.0-16.0); Imm Gran Abs Auto 0.03 X10*3/uL (0.00-0.03); Imm Gran Pct Auto 0.3 % (0.0-0.4); Lymphocytes Absolute Auto 1.8 X10*3/uL (1.2-4.9); Mean Corpuscular HGB Conc 35.2 g/dl (31.0-35.0); Mean Corpuscular Hemoglobin 32.4 pg (27.0-33.0); Mean Corpuscular Volume 92.0 fL (80.0-98.0); NRBC Abs Auto 0.000 X10*3/uL (0.0-0.012); NRBC Pct Auto 0.0 /100WBC (0.0-0.2); Platelet Count 230 X10*3/uL (160-400); Red Blood Count 4.23 X10*6/uL (4.20-5.50); White Blood Count 9.1 X10*3/uL (4.8-10.8)
[2025-02-07 11:27] LABS: Appearance Urine Cloudy; Glucose Urine UA Negative (Negative); PH 7.0 (5.0-9.0); Specific Gravity - Urine 1.015 (1.005-1.025); UMIC TRIGGER UACC YES
[2025-02-07 11:39] LABS: UACC Culture Trigger YES
[2025-02-07 11:49] LABS: Alanine Aminotransferase 24 U/L (0-31); Albumin Level 4.1 g/dL (3.5-5.0); Alkaline Phosphatase 62 U/L (39-117); Anion Gap 9 (12-20); Aspartate Amino Transferase 26 U/L (5-31); Blood Urea Nitrogen 11 mg/dL (9-16); Calcium 9.5 mg/dL (8.4-10.2); Carbon Dioxide 34 mmol/L (22-29); Chloride 103 mmol/L (96-108); Cholesterol 201 mg/dL (<200); Estimated Glomerular Filt Rate > 60; HDL Cholesterol 75 mg/dL (>40); Potassium 3.5 mmol/L (3.3-5.1); Sodium 142 mmol/L (135-145); Total Protein 6.9 g/dL (6.5-8.0); Triglycerides 110 mg/dL (<150)
[2025-02-07 11:59] LABS: Microalbum/Creatinine Ratio Ur 13.0 ug/mg cr (<30)
== END 2025-02-07 08:59 | disposition home or self-care (01) ==
LOC: HO.WFDLDS 08:58
PROVIDERS: Visit Provider Family Medicine
DX: Z00.00 Encounter for general adult medical examination without abnormal findings (principal); I10 Essential (primary) hypertension
CPT/HCPCS: 36415; 80053; 80061; 81001; 82043; 82570; 84443; 85025; 87086